=== PATIENT | female | born 1990 | race Caucasian/White ===

== ENCOUNTER 2020-05-27 06:00 | Inpatient (IN) | payer OTHER ==
[~2020-05-27] VITALS: Ht 162.6 cm; Wt 84.4 kg
--- OUTSIDE RECORDS SUMMARY | ~2020-05-27 | XMS | Encounter Summary ---
Demographics + + + | Address | [address] | | | [place] [address] | + + + | Home Phone | | + + + | Preferred Language | Unknown | + + + | Marital Status | Single | + + + | Congregational Affiliation | Unknown | + + + | Race | White | + + + | Ethnic Group | Not or | + + + Author + + + | Author | [facility] | | | and [place] | + + + | Organization | [facility] | | | and [place] | + + + | Address | Unknown | + + + | Phone | Unavailable | + + + Support + + + + + | Name | Relationship | Address | Phone | + + + + + | Tanner Suarez | ECON | [address] | | | | | [place], | | | | | [place] [address] | | + + + + + | Bernarda Cunningham | ECON | [address] | | | | | [place], [place] | | | | | [address] | | + + + + + Care Team Providers + +------+ + | Care Tool Crib Manager Name | Role | Phone | + +------+ + | Frnaklin Cleary | PCP | | | MD | | | + +------+ + Reason for Visit + + + | Reason | Comments | + + + | Latch Difficulties | | + + + | Consult | | + + + | Sore Nipples | | + + + Encounter Details +--------+ + + + + | Date | Type | Department | Care Team | Description | +--------+ + + + + | 01/28/ | Hospital | [facility] | Rupesh Baker | Other and | | 2013 | Encounter | MED CTR OB | DO [address] | unspecified disorder | | | | PROCEDURES [address] [place] | of breast | | | | [facility], | [place] [address] | associated with | | | | [place] [phone] | [phone] | childbirth, | | | | [phone] | | condition | | | | | | or complication | | | | | | (Primary Dx) | +--------+ + + + + Social History + +-------+ +--------+------+ | Tobacco Use | Types | Packs/Day | Years | Date | | | | | Used | | + +-------+ +--------+------+ | Never Assessed | | | | | + +-------+ +--------+------+ + + + | Sex Assigned at | Date Recorded | | | | + + + | Not on file | | + + + documented as of this encounter Discharge Instructions Patient Instructions Geraldine Thomson RN - 01/28/2014 7:56 PM PDTSee progress notesE lectronically signed by Geraldine Thomson RN at 01/28/2014 7:56 PM PDT documented in this encounter Medications at Time of Discharge + + + +---------+ + + | Medication | Sig | Dispensed | Refills | Start | End Date | | | | | | Date | | + + + +---------+ + + | docusate-senna | Take 1 tablet by | 30 | 1 | 01/25/20 | | | (SENOKOT-S) 50-8.6 | mouth 2 times daily. | tablet | | 14 | | | mg per tablet | | | | | | + + + +---------+ + + | ibuprofen | Take 1 tablet by | 30 | 1 | 01/25/20 | | | (ADVIL,MOTRIN) 800 | mouth every 8 hours | tablet | | 14 | 4 | | MG tablet | as needed for Pain | | | | | | | for up to 10 days. | | | | | + + + +---------+ + + | ranitidine | Take 150 mg by mouth | | 0 | | | | (ZANTAC) 150 mg | as needed. | | | | 6 | | tablet | | | | | | + + + +---------+ + + documented as of this encounter Progress Notes Geraldine Thomson, RAFIQ - 01/28/2014 2:30 PM PDTThe pt has inverted nipples, she is usin g shells between feedings and a nipple shield for feeding. 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
--- OUTSIDE RECORDS SUMMARY | ~2020-05-27 | XMS | Clinical Summary ---
Demographics + + + | Address | [address] | | | [place] [address] | + + + | Home Phone | | + + + | Preferred Language | Unknown | + + + | Marital Status | Single | + + + | Gnosticism Affiliation | Unknown | + + + | Race | Unknown | + + + | Ethnic Group | Other Race | + + + Author + + + | Author | [facility] | + + + | Organization | [facility] | + + + | Address | Unknown | + + + | Phone | Unavailable | + + + Care Team Providers + +------+ + | Care Immigration Law Specialist Name | Role | Phone | + +------+ + PCP | Unavailable | + +------+ + Source Comments CLARA is fully live on both [employer] Ambulatory and [employer] InPatient.[facility] Allergies Not on File Medications Not on file Active Problems Not on file Social History + +-------+ +--------+------+ | Tobacco [...] on file | | + + + + + + + | Job Start Date | Occupation | Industry | + + + + | Not on file | Not on file | Not on file | + + + + + + + + | Travel History | Travel Start | Travel End | + + + + + + | No recent travel history available. | + + Last Filed Vital Signs Not on file Plan of Treatment Not on file Results Not on filefrom Last 3 Months Insurance + +--------+ +--------+ + +------+ | Payer | Benefi | Subscriber | Effect | Phone | Address | Type | | | t Plan | ID | sonia | | | | | | / | | Dates | | | | | | Group | | | | | | + +--------+ +--------+ + +------+ | [employer] | PACIFI | xxxxxxxxxxx | 03/08/20 | [phone] | [address] | PPO | | | [facility] | | [address] | [phone] | | [address] | | sent | | [place] | | | | | | | | , [place] | | | | | | | | [address] | | + +--------+ +--------+ + +------+ + +--------+ +--------+ + + | Guarantor Name | Accoun | Relation to | Date | Phone | Billing Address | | | t Type | Patient | of | | | | | | | | | | + +--------+ +--------+ + + | Casey Alford | Person | Self | [birth year] | [address] | | | al/Kervin | | 1990 | [phone] | [place] [address] | | | er[place]on | | | [address] (Home) | | + +--------+ +--------+ + +"
--- OUTSIDE RECORDS SUMMARY | ~2020-05-27 | XMS | Encounter Summary ---
Demographics + + + | Address | [address] | | | [place] [address] | + + + | Home Phone | | + + + | Preferred Language | Unknown | + + + | Marital Status | Single | + + + | Mosque Affiliation | Unknown | + + + | Race | White | + + + | Ethnic Group | Not or | + + + Author + + + | Author | [facility] | | | and [place] | + + + | Organization | [facility] | | [...] [place], | | | | | [place] [address] | | + + + + + | Bernarda Cunningham | ECON | [address] | | | | | [place], [place] | | | | | [address] | | + + + + + Care Team Providers + +------+ + | Care Patient Scheduling Coordinator Name | Role | Phone | + +------+ + | Franklin Cleary | PCP | | | MD | | | + +------+ + Encounter Details +--------+ + + + + | Date | Type | Department | Care Team | Description | +--------+ + + + + | 02/10/ | Hospital | [facility] | Rupesh Baker | Normal in | | 2016 | Encounter | [address] | [address] | multigravida | | | | [place], [place] | [facility] | | | | | [address] | [place] [address] | | | | | [phone] | [phone] | | +--------+ + + + + Social [...] + + documented as of this encounter Medications at Time of Discharge [...] + + documented as of this encounter Plan of Treatment Not on filedocumented as of this encounter Procedures + +--------+ + + + | Procedure Name | Priori | Date/Time | Associated Diagnosis | Comments | | | ty | | | | + +--------+ + + + | US OB 14 + WEEKS | Routin | 02/11/2016 | Normal | Results for this | | SINGLE OR FIRST | e | 4:00 PM | in multigravida | procedure are in the | | GESTATION | | PDT | | results section. | + +--------+ + + + documented in this encounter Results US OB 14 + Week Singl or First Gestation (02/11/2016 4:00 PM PDT) + + | Specimen | + + | | + + + + --+ | Narrative | Performed At | + + --+ | COMPLETE | [facility] | | OBSTETRIC ULTRASOUND 02/11/2016 4:00 PM (PERFORMED AT [facility] | | | [facility]) CLINICAL HISTORY: Normal in multigravida, | | | approximately 19 weeks 3days based on LMP, evaluate | | | growth and anatomy COMPARISON: None available FINDINGS: A single | | | intrauterine fetus is present, and is in transverse lie, headtoward | | | the maternal right. The maternal cervix is closed and measures 3.9 | | | cm. The placenta is posterior and fundal, without evidence of placenta | | | previa orsubchorionic hemorrhage. Amniotic fluid volume is | | | subjectively within normallimits. biometric data:BPD of 4.6 | | | cm equals 19 weeks 6 days.Head circumference of 17.4 cm equals 19 | | | weeks 6 days.Abdominal circumference of 14.6 cm equals 20 weeks 0 | | | days.Femur length of 3.2 cm equals 19 weeks 6 days. Average | | | sonographic age is 19 weeks 6 days, which is 3 days greater than | | | thecalculated gestational age based on LMP. anatomic survey: | | | Contents of the posterior fossa and the lateralventricles are | | | unremarkable. A four-chamber heart is suggested, with aregular | | | rate of 150 BPM. The orientation of the cardiac | | | ventricularoutflow tracts is not well visualized. A fluid filled | | | stomach and bladder arepresent. The spine and renal region | | | are unremarkable. A three vesselumbilical cord is present, however | | | its insertion is not optimallyvisualized. Two upper and lower | | | extremities are visualized. IMPRESSION -1. SINGLE, LIVING | | | INTRAUTERINE FETUS IN TRANSVERSE LIE, WITH AVERAGESONOGRAPHIC AGE 19 | | | WEEKS 6 DAYS, WHICH IS 3 DAYS GREATER THAN THE CALCULATEDGESTATIONAL | | | AGE BASED ON LMP. 2. SUBOPTIMAL VISUALIZATION OF THE | | | UMBILICAL CORD INSERTION ANDORIENTATION OF THE CARDIAC VENTRICULAR | | | OUTFLOW TRACTS. CONSIDER INTERVALSONOGRAPHIC FOLLOW-UP . 3. | | | OTHERWISE NORMAL ANATOMIC SURVEY. Dictated and Signed by: Johnathan | | | MD Ben Electronically signed: 02/14/2016 6:07 PM | | | | | |IMPRESSION - | | |1. SINGLE, LIVING INTRAUTERINE FETUS IN TRANSVERSE LIE, WITH AVERAGE | | |SONOGRAPHIC AGE 19 WEEKS 6 DAYS, WHICH IS 3 DAYS GREATER THAN THE CALCULATED | | |GESTATIONAL AGE BASED ON LMP. | | | | | |2. SUBOPTIMAL VISUALIZATION OF THE UMBILICAL CORD INSERTION AND | | |ORIENTATION OF THE CARDIAC VENTRICULAR OUTFLOW TRACTS. CONSIDER INTERVAL | | |SONOGRAPHIC FOLLOW-UP . | | | | | |3. OTHERWISE NORMAL ANATOMIC SURVEY. | | | | | |Dictated and Signed by: Johnathan Contreras MD | | | Electronically signed: 02/14/2016 6:07 PM | | | | | + + --+ + + | Procedure Note | + + | Clayton, Rad Results In - 02/14/2016 6:10 PM PDT COMPLETE OBSTETRIC ULTRASOUND 02/11/2016 | | 4:00 PM (PERFORMED AT [facility])CLINICAL HISTORY: Normal in | | multigravida, approximately 19 weeks 3days based on LMP, evaluate growth | | and anatomyCOMPARISON: None availableFINDINGS: A single intrauterine fetus is present, | | and is in transverse lie, headtoward the maternal right. The maternal cervix is closed | | and measures 3.9 cm. The placenta is posterior and fundal, without evidence of placenta | | previa orsubchorionic hemorrhage. Amniotic fluid volume is subjectively within | | normallimits. biometric data:BPD of 4.6 cm equals 19 weeks 6 days.Head | | circumference of 17.4 cm equals 19 weeks 6 days.Abdominal circumference of 14.6 cm | | equals 20 weeks 0 days.Femur length of 3.2 cm equals 19 weeks 6 days.Average sonographic | | age is 19 weeks 6 days, which is 3 days greater than thecalculated gestational age | | based on LMP. anatomic survey: Contents of the posterior fossa and the | | lateralventricles are unremarkable. A four-chamber heart is suggested, with aregular | | rate of 150 BPM. The orientation of the cardiac ventricularoutflow tracts is not | | well visualized. A fluid filled stomach and bladder arepresent. The spine and | | renal region are unremarkable. A three vesselumbilical cord is present, however its | | insertion is not optimallyvisualized. Two upper and lower extremities are | | visualized. IMPRESSION -1. SINGLE, LIVING INTRAUTERINE FETUS IN TRANSVERSE LIE, | | WITH AVERAGESONOGRAPHIC AGE 19 WEEKS 6 DAYS, WHICH IS 3 DAYS GREATER THAN THE | | CALCULATEDGESTATIONAL AGE BASED ON LMP. 2. SUBOPTIMAL VISUALIZATION OF THE | | UMBILICAL CORD INSERTION ANDORIENTATION OF THE CARDIAC VENTRICULAR OUTFLOW TRACTS. | | CONSIDER INTERVALSONOGRAPHIC FOLLOW-UP .3. OTHERWISE NORMAL ANATOMIC | | SURVEY.Dictated and Signed by: Johnathan Contreras MD Electronically signed: 02/14/2016 6:07 PM | | anatomic survey: Contents of the posterior fossa and the lateral | |ventricles are unremarkable. A four-chamber heart is suggested, with a | |regular rate of 150 BPM. The orientation of the cardiac ventricular | |outflow tracts is not well visualized. A fluid filled stomach and bladder are | |present. The spine and renal region are unremarkable. A three vessel | |umbilical cord is present, however its insertion is not optimally | |visualized. Two upper and lower extremities are visualized. | | | |IMPRESSION - | |1. SINGLE, LIVING INTRAUTERINE FETUS IN TRANSVERSE LIE, WITH AVERAGE | |SONOGRAPHIC AGE 19 WEEKS 6 DAYS, WHICH IS 3 DAYS GREATER THAN THE CALCULATED | |GESTATIONAL AGE BASED ON LMP. | | | |2. SUBOPTIMAL VISUALIZATION OF THE UMBILICAL CORD INSERTION AND | |ORIENTATION OF THE CARDIAC VENTRICULAR OUTFLOW TRACTS. CONSIDER INTERVAL | |SONOGRAPHIC FOLLOW-UP . | | | |3. OTHERWISE NORMAL ANATOMIC SURVEY. | | | |Dictated and Signed by: Johnathan Contreras MD | | Electronically signed: 02/14/2016 6:07 PM | + + + +---------+ + + | Performing | Address | City/State/Zipcode | Phone Number | | Organization | | | | + +---------+ + + | [facility] | | | | + +---------+ + + documented in this encounter Visit Diagnoses + + | Diagnosis | + + | Normal in multigravida | + + documented in this encounter"
--- OUTSIDE RECORDS SUMMARY | ~2020-05-27 | XMS | Encounter Summary ---
Demographics + + + | Address | [address] | | | [place] [address] | + + + | Home Phone | | + + + | Preferred Language | Unknown | + + + | Marital Status | Single | + + + | Advent Affiliation | Unknown | + + + | Race | White | + + + | Ethnic Group | Not or | + + + Author + + + | Author | [facility] | | | and [place] | + + + | Organization | [facility] | | | and [...] [place], | | | | | [place] [address] | | + + + + + | Bernarda Cunningham | ECON | [address] | | | | | [place], [place] | | | | | [address] | | + + + + + Care Team Providers + +------+ + | Care Analytics Architect Name | Role | Phone | + +------+ + | Franklin Cleary | PCP | | | MD | | | + +------+ + Reason for Visit + + + | Reason | Comments | + + + | Consult | | + + + Encounter Details +--------+ + + + + | Date | Type | Department | Care Team | Description | +--------+ + + + + | 06/27/ | Hospital | [facility] | Rupesh Baker | care and | | 2016 | Encounter | MED CTR OB | DO [address] | examination of | | | | PROCEDURES [address] [place] | lactating mother | | | | [place], | [place] [address] | (Primary Dx) | | | | [place] [id number] | [phone] | | | | | [phone] | | | +--------+ + + + + [...] Instructions Patient Instructions Geraldine Thomson RN - 06/27/2016 4:43 PM PDTSee progress notesE lectronically signed by Geraldine Thomson RN at 06/27/2016 4:43 PM PDT documented in this encounter Medications at Time of Discharge + + + +---------+ + + | Medication | Sig | Dispensed | Refills | Start | End Date | | | | | | Date | | + + + +---------+ + + | docusate-senna | Take 1 tablet by | 30 | 1 | 06/23/20 | | | (SENOKOT-S) 50-8.6 | mouth 2 times daily. | tablet | | 16 | | | mg per tablet | [...] + + + +---------+ + + | | Take 1-2 tablets by | 30 | 0 | 06/23/20 | | | HYDROcodone-acetamin | mouth every 6 hours | tablet | | 16 | | | ophen (NORCO) 5-325 | as needed for Pain | | | | | | mg per tablet | for up to 30 doses. | | | | | + + + +---------+ + + | ibuprofen | Take 1 tablet by | 30 | 1 | 06/23/20 | | | (ADVIL,MOTRIN) 800 | mouth every 8 hours | tablet | | 16 | 6 | | MG tablet | as needed for Pain | | | | | | | for up to 10 days. | | | | | + + + +---------+ + + documented as of this encounter Progress Notes Geraldine Thomson RN - 06/27/2016 4:39 PM PDT Ac/pc weight 66cc. The infants latc h has improved. The mother's nipples are healing and Her milk is in. The infants lingual frenotomy site is healing, No redness or swelling. The infant has frequent yellow seedy looking stool and pale yellow urine. The mother instructed to continue to feed the per demand. The baby will be seen by Dr Pedro in [facility] in one week. The pt reports feeling better and reports ,"the baby nurses so well, it's what I had hoped". Nipple care r ashwin, Hand expressing fresh breast milk onto her nipples following breast feeding and al lowing this to air dry to promote healing and reduce nipple tenderness. documented in this encounter Plan of Treatment Not on filedocumented as of this encounter Visit Diagnoses + + | Diagnosis | + + | care and examination of lactating mother - Primary | + + documented in this encounter
--- OUTSIDE RECORDS SUMMARY | ~2020-05-27 | XMS | Encounter Summary ---
Demographics + + + | Address | [address] | | | [place] [address] | + + + | Home Phone | | + + + | Preferred Language | Unknown | + + + | Marital Status | Single | + + + | Yazidism Affiliation | Unknown | + + + | Race | White | + + + | Ethnic Group | Not or | + + + Author + + + | Author | [facility] | | | and [place] | + + + | Organization | [facility] | | | [...] [place], | | | | | [place] [address] | | + + + + + | Bernarda Cunningham | ECON | [address] | | | | | [place], [place] | | | | | [address] | | + + + + + Care Team Providers + +------+ + | Care Stamp Clerk Name | Role | Phone | + +------+ + | Franklin Cleary | PCP | | | MD | | | + +------+ + Encounter Details +--------+ + + + + | Date | Type | Department | Care Team | Description | +--------+ + + + + | 03/31/ | Hospital | [facility] | Rupesh Baker | Normal in | | 2016 | Encounter | [address] | DO [address] | multigravida | | | | [place], [place] | [facility] | | | | | [address] | [place] [address] | | | | | [phone] | [phone] | | +--------+ + + + + [...] +--------+ + + + | US OB FOLLOW UP | Routin | 03/31/2016 | Normal | Results for this | | TRANSABDOMINAL | e | 3:00 PM | in multigravida | procedure are in the | | | | PDT | | results section. | + +--------+ + + + documented in this encounter Results US OB Follow Up Transabdominal (03/31/2016 3:00 PM PDT) + + | Specimen | + + | | + + + + + | Narrative | Performed At | + + + | EXAM: US OB FOLLOW UP TRANSABDOMINAL and 03/31/2016 3:00 PM | [facility] | | HISTORY: Normal in multigravida. COMPARISON: February | | | 2015 FINDINGS: BPD: 68.9 mm: 27 weeks 5 days HC: 260.8 mm: | | | 28 weeks 2 days AC: 226.5 mm: 27 weeks 0 days FL: 49.8 mm: 26 weeks | | | 6 days EFW: 1031 g, corresponding to 69 percentile by LMP and 26 | | | percentile by ultrasound. Cephalic index: 75.9(normal range | | | 70.0-86.0) HC/AC ratio: 1.15 (1.04-1.22) Composite estimated | | | gestational age by U/S: 27 weeks 3 days correlating adequately with | | | LMP dating of 26 weeks 3 days heart rate: 153 bpm, with a | | | normal cardiac rhythm. The cervix is long and closed, measuring 3 | | | cm in length. The placenta is posterior, without evidence of placenta | | | previa. The fetus is in breech presentation. Amniotic fluid | | | is subjectively normal. Active motion is seen. Ventricular | | | outflow tracts are acceptable. cord insertion is acceptable. | | | IMPRESSION - Single live intrauterine gestation. Good | | | correlation between clinical and sonographic dating. Dictated and | | | Signed by: Rupesh Cee MD Electronically signed: 03/31/2016 | | | 5:28 PM | | + + + + + | Procedure Note | + + | Clayton, Rad Results In - 03/31/2016 5:31 PM PDT EXAM: US OB FOLLOW UP TRANSABDOMINAL | | and 03/31/2016 3:00 PMHISTORY: Normal in multigravida. COMPARISON: February 10 | | 2015FINDINGS:BPD: 68.9 mm: 27 weeks 5 daysHC: 260.8 mm: 28 weeks 2 daysAC: 226.5 mm: 27 | | weeks 0 daysFL: 49.8 mm: 26 weeks 6 daysEFW: 1031 g, corresponding to 69 percentile by | | LMP and 26 percentile byultrasound.Cephalic index: 75.9(normal range 70.0-86.0)HC/AC | | ratio: 1.15 (1.04-1.22)Composite estimated gestational age by U/S: 27 weeks 3 days | | correlatingadequately with LMP dating of 26 weeks 3 daysFetal heart rate: 153 bpm, with | | a normal cardiac rhythm.The cervix is long and closed, measuring 3 cm in length.The | | placenta is posterior, without evidence of placenta previa. The fetus is in breech | | presentation.Amniotic fluid is subjectively normal.Active motion is seen. | | Ventricular outflow tracts are acceptable. Fetalcord insertion is acceptable. | | IMPRESSION -Single live intrauterine gestation. Good correlation between clinical | | andsonographic dating.Dictated and Signed by: Rupesh Cee MD Electronically | | signed: 03/31/2016 5:28 PM | | | |Cephalic index: 75.9(normal range 70.0-86.0) | |HC/AC ratio: 1.15 (1.04-1.22) | | | |Composite estimated gestational age by U/S: 27 weeks 3 days correlating | |adequately with LMP dating of 26 weeks 3 days | | heart rate: 153 bpm, with a normal cardiac rhythm. | | | |The cervix is long and closed, measuring 3 cm in length. | |The placenta is posterior, without evidence of placenta previa. | | | |The fetus is in breech presentation. | | | |Amniotic fluid is subjectively normal. | | | |Active motion is seen. Ventricular outflow tracts are acceptable. | |cord insertion is acceptable. | | | |IMPRESSION - | | | |Single live intrauterine gestation. Good correlation between clinical and | |sonographic dating. | | | |Dictated and Signed by: Rupesh Cee MD | | Electronically signed: 03/31/2016 5:28 PM | + + + +---------+ + [...]
--- OUTSIDE RECORDS SUMMARY | ~2020-05-27 | XMS | Clinical Summary ---
Demographics + + + | Address | [address] | | | [place] [address] | + + + | Home Phone | | + + + | Preferred Language | Unknown | + + + | Marital Status | Single | + + + | Taoist Affiliation | Unknown | + + + | Race | White | + + + | Ethnic Group | Not or | + + + Author + + + | Author | [facility] | | | and [place] [...] [place], | | | | | [place] [address] | | + + + + + | Bernarda Cunningham | ECON | [address] | | | | | [place], [place] | | | | | [address] | | + + + + + Care Team Providers + +------+ + | Care Field Nurse Case Manager Name | Role | Phone | + +------+ + | Franklin Cleary | PCP | | | MD | | | + +------+ + Allergies No Known Allergies Medications + + + +---------+------+------+-------+ | Medication | Sig | Dispensed | Refills | Star | End | Statu | | | | | | t | Date | s | | | | | | Date | | | + + + +---------+------+------+-------+ | docusate-senna | Take 1 tablet by | 30 | 1 | 04/1 | | Activ | | (SENOKOT-S) 50-8.6 | mouth 2 times daily. | tablet | | 9/20 | | e | | mg per tablet | | | | 14 | | | + + + +---------+------+------+-------+ | docusate-senna | Take 1 tablet by | 30 | 1 | 09/1 | | Activ | | (SENOKOT-S) 50-8.6 | mouth 2 times daily. | tablet | | 6/20 | | e | | mg per tablet | | | | 16 | | | + + + +---------+------+------+-------+ | | Take 1-2 tablets by | 30 | 0 | 09/1 | | Activ | | HYDROcodone-acetamin | mouth every 6 hours | tablet | | 6/20 | | e | | ophen (NORCO) 5-325 | as needed for Pain | | | 16 | | | | mg per tablet | for up to 30 doses. | | | | | | + + + +---------+------+------+-------+ Active Problems Not on file Social History [...] on file | | + + + Last Filed Vital Signs + + + + + | Vital Sign | Reading | Time Taken | Comments | + + + + + | Blood Pressure | 121/83 | 06/23/2016 4:00 PM | | | | | PDT | | + + + + + | Pulse | 92 | 06/23/2016 4:00 PM | | | | | PDT | | + + + + + | Temperature | 37.2 C (99 F) | 06/23/2016 4:00 PM | | | | | PDT | | + + + + + | Respiratory Rate | 18 | 06/23/2016 4:00 PM | | | | | PDT | | + + + + + | Oxygen Saturation | 97% | 06/23/2016 4:00 PM | | | | | PDT | | + + + + + | Inhaled Oxygen | - | - | | | Concentration | | | | + + + + + | Weight | 97.1 kg (214 lb) | 01/22/2014 12:43 AM | | | | | PDT | | + + + + + | Height | 162.6 cm (5' 4") | 01/22/2014 12:43 AM | | | | | PDT | | + + + + + | Body Mass Index | 36.73 | 01/22/2014 12:43 AM | | | | | PDT | | + + + + + Plan of Treatment + + +-------+ + | Health Maintenance | Due Date | Last | Comments | | | | Done | | + + +-------+ + | Vaccine: | | | | | Dtap/Tdap/Td (1 - | 8 | | | | Tdap) | | | | + + +-------+ + | Cervical Cancer | | | | | Screening (Pap) | 9 | | | + + +-------+ + | Vaccine: Influenza | | | | | (#1) | 0 | | | + + +-------+ + Results Not on filefrom Last 3 Months Insurance +-------+--------+ +--------+ + +------+ | Payer | Benefi | Subscriber | Effect | Phone | Address | Type | | | t Plan | ID | sonia | | | | | | / | | Dates | | | | | | Group | | | | | | +-------+--------+ +--------+ + +------+ | MOD[employer] | [employer] | [id number] | 10/08/19 | [phone] | [address] | PPO | | | [place] | | 16-Pre | 9 | [id number] | | | | EPO | | sent | | [facility] [place], | | | | | | | | [place] [address] | | +-------+--------+ +--------+ + +------+ + +--------+ +--------+ + + | Guarantor Name | Accoun | Relation to | Date | Phone | Billing Address | | | t Type | Patient | of | | | | | | | | | | + +--------+ +--------+ + + | Casey Alford | Person | Self | [birth year] | [address] | | [place] | al/Fam | | 1990 | [phone] | [place] | | | [place] | | | [address] ([place]) | [address] | + +--------+ +--------+ + + Advance Directives + + + + + | Type | Date Recorded | Patient | Explanation | | | | 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
--- OUTSIDE RECORDS SUMMARY | ~2020-05-27 | XMS | Encounter Summary ---
Demographics + + + | Address | [address] [facility] | | | [place] [address] | + + + | Home Phone | | + + + | Preferred Language | Unknown | + + + | Marital Status | Single | + + + | Rastafari Affiliation | Unknown | + + + | Race | White | + + + | Ethnic Group | Not or | + + + Author + + + | Author | [facility] | | | and [place] | + + + | Organization | [facility] | | | [...] [place], | | | | | [place] [address] | | + + + + + | Bernarda Cunningham | ECON | [address] | | | | | [place], [place] | | | | | [address] | | + + + + + Care Team Providers + +------+ + | Care Hoe Runner Name | Role | Phone | + +------+ + | Franklin Cleary | PCP | | | MD | | | + +------+ + Reason for Referral Evaluate & Treat (Routine) +--------+ + + + + + | Status | Reason | Specialty | Diagnoses / | Referred By | Referred To | | | | | Procedures | Contact | Contact | +--------+ + + + + + | Closed | Specialty | | Diagnoses | | | | | Services | Services / | | Samuel, | | | | Required | | care and | Rupesh Bai, | | | | | and | examination | DO [address] | | | | | | [address] | | | | | | | [place], | | | | | | | [place] | | | | | | | [address] | | | | | | | Phone: | | | | | | | [phone] | | +--------+ + + + + + (Routine) +--------+ + + + + + | Status | Reason | Specialty | Diagnoses / | Referred By | Referred To | | | | | Procedures | Contact | Contact | +--------+ + + + + + | Closed | Specialty | | Diagnoses | | | | | Services | and | | Montagnino, | | | | Required | | care and | Nicki | | | | | | examination | Christina | | | | | | | Franklin, DO | | | | | | | [address] | | | | | | | [address] [place] | | | | | | | [place], [place] | | | | | | | [address] | | | | | | | Phone: | | | | | | | [phone] | | | | | | | Fax: | | | | | | | [phone] | | +--------+ + + + + + Reason for Visit Auth/Cert +--------+--------+ + + + + | Status | Reason | Specialty | Diagnoses / | Referred By | Referred To | | | | | Procedures | Contact | Contact | +--------+--------+ + + + + | | | | | | | +--------+--------+ + + + + Encounter Details +--------+ + + + + | Date | Type | Department | Care Team | Description | +--------+ + + + + | 06/22/ | Hospital | [facility] | Nicki Baxter | care and | | 2016 - | Encounter | [facility] | Christina Reid DO | examination (Primary | | | | [address] | [address] | Dx) | | 06/23/ | | [place] | [place] | | | 2015 | | [id number] | [address] | | | | | [phone] | | | | | | | Rupesh Baker | | | | | | DO Richardson [address] | | | | | | [address] [place] | | | | | | [place] [address] | | | | | | [phone] | | +--------+ + + + + [...] + + documented as of this encounter Last Filed Vital Signs + + + [...] + + + + | Weight | - | - | | + + + + + | Height | - | - | | + + + + + | Body Mass Index | - | - | | + + + + + documented in this encounter Discharge Instructions Instructions Josee Ngo RN - 06/23/2016POSTPARTUM DISCHARGE INSTRUCTIONS Warning Signs Check List Notify your clinician immediately if you are experiencing any of the following: Heavy bleeding from the vagina (blood is bright-red and soaks a pad in an hour or less) Normal bleeding decreases in amount over time and is: Bright-red (lasts two to three days). Pinkish or brown (lasts from about the third day to the tenth day). Creamy or yellow (usually lasts one to two weeks). Discharge from the vagina that has a bad odor. Temperature over 100.4 (38 C) or you feel cold and have the chills (you are shiv ering). Urination that is painful, difficult, or too frequent. Difficulty having a bowel movement. Painful, very red, and swollen incision or leaking of any fluids. Breasts that are full and or/painful (swollen, hot, tight, itchy, lumpy, shiny, flat nip ples, or sore spots with flu-like symptoms). Pain that becomes worse and unrelieved by medication. Trouble breathing, dizziness, or faintness. Crying spells or mood swings that feel out of control. Pain, redness, warmth or firmness in the lower calf. Unusual or excessive swelling in your face or hands. Severe or constant headaches. Blurred vision or spots in front of your eyes. Sudden weight gain of more than one pound a day for several days. Persistent pain in the upper right part of your abdomen. Activity/Exercise Do not drive while you are taking narcotics. If you had a section, try driving maneuvers while parked to ensure no increase in incisional pain. Gradually increase your daily activities until you are back to your normal routine. Rest frequently. Remember to continue to drink plenty of fluids and eat frequently if yo u are . Heavy lifting or other strenuous exertion is unlikely to disrupt your incision or lacera tion but it may cause an increase in pain. Your provider will tell you if additional restric tions apply to you. Bowels and Regularity constipation is common; you make take Docusate sodium or Milk of Magnesia to alleviate discomfort Painful bowel movements or rectal pain may result from hemorrhoids; use Tucks and/or top ical treatment like Anusol-HC. Sitz baths can also help. Normal Bleeding Vaginal spotting may last up to six weeks. It is important that you change your pad on a regular basis. Your menstrual period may occur as early as six weeks to two months after your delivery. Care of Stitches You should feel less discomfort every day from your stitches. Perineal stitches will dissolve within 2-4 weeks. You may shower or bathe with stitches; drip plain or soapy water over the incision and d ry gently with a clean towel. If you have luci you may shower (no tub bathing), and dry g ently with a clean towel. If you had any luci that were not removed during your hospitalization they will need to be removed in your provider's office. Steri-strips may fall off on their own or can be removed at post-op visit. Sex/Douching/Tampons Do not place anything in the vagina for the first six weeks after delivery. Your healthcare provider may advise you to wait up to six weeks for intercourse. Once th e bleeding has stopped, it is alright to have intercourse if you feel ready. Keep in mind yo u are at risk of getting . You may find your vagina feels dry, making sex uncomfortable. This can last several gautam hs due to changing hormone levels. To help lubricate your vagina, you may purchase a waterso luble lubricant (e.g., Astroglide) from your local drug store. This will help make intercour se more comfortable. documented in this encounter Medications at Time [...] documented as of this encounter Progress Notes Josee Ngo RN - 06/23/2016 6:15 PM PDTDischarged to home with baby and spouse. Derek valencia will schedule a [address] up [address] Baker. osee Ngo RN - 06/23/2016 4:30 PM PDT Discharge teaching gone over with patient, verbalizes understanding. Josee Vega RN - 06/23/2016 7:4 5 AM PDTAssessment completed, denies complaints at this time. Rupesh Renteria DO - 06/23/2016 7:00 A M PDT OBSTETRICAL PROGRESS NOTE Casey Alford : 1990 Hospital Day: 2 1 day post vaginal delivery Subjective The patient feels well and voices no concerns. Her pain is well controlled with current me dications. Urinary output is adequate. The patient is ambulating well. She is tolerating a r egular diet well. Objective Vitals Current Average / Min / Max Temp 36.5 C (97.7 F) Temp Min: 36.5 C (97.7 F) Max: 36.8 C (98.2 F) BP 113/55 mmHg BP Min: 106/61 Max: 116/73 HR 82 Pulse Av.7 Min: 79 Max: 93 RR 18 Resp Av Min: 18 Max: 18 Sats 99 % SpO2 Min: 97 % Max: 99 % Weight Admit: BMI There is no weight on file to calculate BMI. No intake or output data in the 24 hours ending 06/23/16 0700 General: alert and appropriate in NAD Respiratory: clear to auscultation bilaterally Cardiovascular: regular rate and rhythm Lochia: moderate lochia UterineFundus: firm and nontender DVT Evaluation: No evidence of DVT seen on physical exam. Labs: No results found for this or any previous visit (from the past 12 hour(s)). Assessment & Plan Active Problems: * No active hospital problems. * Status post vaginal delivery. Doing well . Discharge home with standard precautions and return to clinic in 6 weeks. Patient will be discharged on ibuprofen 800 mg, hydrocodone 5 mg, senna S as needed. Patient will return in 6 weeks. Precautions were given for early return. Electronically signed: Rupesh Baker DO 06/23/2016 7:00 Patience Wolf RN - 06/22/2016 9:56 PM PDTSleeping/Electronically signed by RAFIQ Fisher t 06/22/2016 9:56 PM Vinay Wolf RN - 06/22/2016 9:31 PM [id number]) saline lock r emoved, assessment done. WNL. Josee Vega RN - 06/22/2016 9:00 AM PDTUp to bathroom, voided without d ifficulty. Up to shower, tolerated well.Electronically signed by Josee Ngo RN at 0 06/22/2016 10:48 AM Josee Vega RN - 06/22/2016 8:00 AM PDTAssessment completed, denies complaints at this time. 16 10:22 AM Dianne Hogan RN - 06/22/2016 4:43 AM PDTViable BB del Vag to mom's ab domen, skin to skin initiated. apgars 8/8 Dianne Hogan RN - 06/22/2016 2:39 AM PDTPt presents to unit c /o contractions since midnight every 2 min. Reports pressure, crying. 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 She reports good movements and denies loss of fluid or vaginal bleeding. course: Uncomplicated Elevated DMS, 3hr GTT normal GBS negative Review of Systems: Obstetrical: Patient denies headaches, visual changes, or epigastric pain Constitutional: Negative for fever, chills and activity change. Head/Ears: Negative for dizziness, lightheadedness. Respiratory: Negative for chest tightness and shortness of breath. Cardiovascular: Negative for chest pain and leg swelling. Gastrointestinal: Negative for diarrhea, constipation and abdominal distention. Genitourinary: Negative for dysuria and frequency. Musculoskeletal: Negative for back pain and joint swelling. Neurological: Negative for tremors and weakness. Hematological: Does not bruise/bleed easily. Psychiatric/Behavioral: Negative for sleep disturbance and dysphoric mood. Past Medical History: No past medical history on file. Surgical History: No past surgical history on file. Family History: No family history on file. Prior To Admission Medications: Prescriptions prior to admission Medication Sig Dispense Refill docusate-senna (SENOKOT-S) 50-8.6 mg per tablet Take 1 tablet by mouth 2 times daily. 3 0 tablet 1 ranitidine (ZANTAC) 150 mg tablet Take 150 mg by mouth as needed. Allergies: No Known Allergies LABS: PHYSICAL EXAM: Vital Signs on Arrival: Pulse: 74 Resp: 22 BP: 112/82 mmHg Vitals Signs (most recent): Pulse: 74 Resp: 22 BP: 112/82 mmHg Admission Weight: General: Alert and oriented HEENT: No abnormality noted Lungs: Clear, no respiratory distress Heart: Regular rate and rhythm, Abdomen: Gravid, nontender, heart tones obtained Extremities: Trace edema, normal pulses Estimated Weight: 9lbs Monitorin, moderate variability, no decelerations, Category 1 Tre[place]: uterine contractions every 2-3 mins Vaginal Exam (Last assessment) /BB AROM performed with return of clear fluid. IMPRESSION: 26 y.o. 38w2d presents in active labor. AROM performed. PLAN: -Expectant management -history of 9lb+ without epidural -Plan for vaginal delivery Electronically Signed by: Nicki Baxter DO 06/22/2016 4:01 docu mented in this encounter Consult Notes Geraldine Thomson RN - 06/22/2016 12:55 PM PDTThe infant has not been able to maintain his latch when breast feeding. The mother assisted with supporting the infant during the fe eding. The baby was able to obtain a latch with the nipple shield. The baby has been given infant formula by SNS to increase his blood sugar levels. The mother is able to express co lostrum easily. The baby does not suckle effectively to remove colostrum from the breast. Therefor the mother has been shown how to use the electric breast pump to provide the baby w ith supplemental expressed breast milk and to stimulate the mother's milk supply. The baby' s difficulty latching may be caused by ankyloglossia. Possible treatment for ankyloglossia discussed with the mother and father.Electronically signed by Geraldine Thomson RN at 12:55 PM PDTdocumented in this encounter Miscellaneous Notes Plan of Care - Josee Ngo RN - 06/23/2016 7:01 PM PDTProblem: Patient Care Overv iew (Infant) Goal: Care Team Goals & Evaluation PROBLEM-RELATED GOALS: Casey will maintain pain at 4/10 or less 06/22/16 Will have have light to mod vag bleeding 06/22/16 Will remain fee for infection 06/22/16 STRATEGY TO ACHIEVE GOALS: Encourage early Watch for changes in blood pressure, heart rate and urine output Continue uterine fundal massage, if fundus remains boggy Anticipate administration of uterotonic medications Accurately assess amount of blood loss (e.g., weigh perineal pads) Check for pooling on underpad Observe feedings twice daily, assessing s ability to latch and suck/swallow, moth er- positioning and presence of milk transfer Promote effective latch Advocate for patience/persistence to promote infant success Evaluate for signs of adequate intake Advocate for the use of appropriate alternative devices (e.g., cup as first choice, finger, syringe, dropper) when indicated Outcome: Adequate for Discharge Date Met: 06/23/16 Goal Evaluation: Pain has been well controlled with ibuprofen and hydrocodone. Bleeding has been minimal ov er the last 24 hours. Has no s/s of infection. lan of Care - Dianne Noonan RN - 06/22/2016 6:46 AM PDTProblem: Patient Care Overview (Infant) Goal: Care Team Goals & Evaluation PROBLEM-RELATED GOALS: Casey will maintain pain at 4/10 or less 06/22/16 Will have have light to mod vag bleeding 06/22/16 Will remain fee for infection 06/22/16 STRATEGY TO ACHIEVE GOALS: Encourage early Watch for changes in blood pressure, heart rate and urine output Continue uterine fundal massage, if fundus remains boggy Anticipate administration of uterotonic medications Accurately assess amount of blood loss (e.g., weigh perineal pads) Check for pooling on underpad Observe feedings twice daily, assessing s ability to latch and suck/swallow, moth er- positioning and presence of milk transfer Promote effective latch Advocate for patience/persistence to promote success Evaluate for signs of adequate intake Advocate for the use of appropriate alternative devices (e.g., cup as first choice, finger, syringe, dropper) when indicated Outcome: Unchanged Goal Evaluation: pt c/o of abdomen cramping after delivery motrin initally and [place] given after pt report s no change. Vag bleeding mod with no noted clots, continue to monitor closely. &D Delivery Nicki Bowers DO - 06/22/2016 4:05 AM PDTFormatting of this note mi ght be different from the original. OBSTETRICAL VAGINAL DELIVERY NOTE Pre-op Diagnosis: 1. Intrauterine at 38w2d 2. Active labor Post-op Diagnosis: same including 3. Delivered Procedure: Normal Spontaneous Vaginal Delivery Delivering Physician: Nicki Baxter DO Findings: Information for the patient's : Ralph Alford [[id number]] Delivery Date: 06/22/2016 Delivery Time: 0344 Baby: Pending Prashanth Sex: unspecified sex Weight: Height: Head circumference: APGARS One minute Five minutes Ten minutes Totals: 8 8 , weight pending with APGARs at one minute and at five minutes. Placenta delivered spontaneously intact with 3 vessel cord with uterine massage. Lacerations: EBL: 200ml Anesthesia:none Pre-delivery course: Casey Alford is a 26 y.o., who presented at 38w2d with labor. Her labor course was uneventful. Description of delivery: I performed AROM. Shortly after ROM, began pushing. She pushed for less than 10 minutes. Sh e delivered a viable in cephalic presentation. The head delivered in a right occipu t anterior presentation and the left shoulder was the anterior shoulder which delivered spon taneously without any difficulty. The remainder of the delivery was uncomplicated and atrau matic. The baby was placed directly on the mother's abdomen and the cord was clamped times two and subsequently cut by the baby's grandmother. Cord blood was obtained. An oxytocin infusion was then started and the placenta was removed spontaneously and found to be intact with a three vessel cord. Massage of the uterine fundus noted good tone. Insp ections for lacerations noted 1st degree laceration that did not require repair. Hemostatic. The patient tolerated the delivery well without any complications. Sponge, instrument, and needle counts were correct times two. The mother and baby were recovering together in the delivery room. Electronically Signed by: Nicki Baxter DO 06/22/2016 4:06 documented in this encounter Plan of Treatment + + +--------+ + + | Name | Type | Priori | Associated Diagnoses | Order Schedule | | | | ty | | | + + +--------+ + + | Amb referral to | Outpatient | Routin | care | 1 Occurrences | | | Referral | e | and examination | starting 06/23/2016 | | | | | | until 06/22/2017 | + + +--------+ + + | Ambulatory referral | Outpatient | Routin | care | 1 Occurrences | | to | Referral | e | and examination | starting 06/23/2016 | | | | | | until 06/22/2017 | + + +--------+ + + documented as of this encounter Procedures + +--------+ + + + | Procedure Name | Priori | Date/Time | Associated Diagnosis | Comments | | | ty | | | | + +--------+ + + + | CBC NO DIFFERENTIAL | Routin | 06/23/2016 | | Results for this | | | e | 6:06 AM | | procedure are in the | | | | PDT | | results section. | + +--------+ + + + | TYPE AND SCREEN | Routin | 06/22/2016 | | Results for this | | | e | 2:23 AM | | procedure are in the | | | | PDT | | results section. | + +--------+ + + + | CBC NO DIFFERENTIAL | STAT | 06/22/2016 | | Results for this | | | | 2:22 AM | | procedure are in the | | | | PDT | | results section. | + +--------+ + + + documented in this encounter Results CBC no Differential (06/23/2016 6:06 AM PDT) + + + + + + | Component | Value | Ref Range | Performed | Pathologist | | | | | At | Signature | + + + + + + | White Blood | 11.0 | 4.0 - 11.0 K/uL | [facility] | | | Cells | | [facility] | | [facility] | | | | | [facility] - | | | | | | LAB[facility]AT[facility] | | + + + + + + | Red Blood | 4.11 | 3.70 - 5.20 | [facility] | | | Cells | | M/uL | [facility] | | | | | [facility] | | | | | | [facility] - | | | | | | LABORATORY | | + + + + + + | Hemoglobin | 13.5 | 11.5 - 16.0 | [facility] | | | | | g/dL | [facility] | | | | | | [facility] | | | | | | [facility] - | | | | | | LABORATORY | | + + + + + + | Hematocrit | 37.3 | 34.0 - 47.0 % | [facility] | | | | | | [facility] | | | | | | [facility] | | | | | | [facility] - | | | | | | LABORATORY | | + + + + + + | MCV | 90.7 | 83.0 - 101.0 fL | [facility] | | | | | | [facility] | | | | | | [facility] | | | | | | [facility] - | | | | | | LABORATORY | | + + + + + + | MCH | 32.8 | 28.0 - 35.0 pg | [facility] | | | | | | [facility] | | | | | | [facility] | | | | | | [facility] - | | | | | | LABORATORY | | + + + + + + | MCHC | 36.1 (H) | 32.0 - 36.0 | [facility] | | | | | g/dL | [facility] | | | | | | [facility] | | | | | | [facility] - | | | | | | LABORATORY | | + + + + + + | RDW-CV | 13.9 | <15.0 % | [facility] | | | | | | [facility] | | | | | | [facility] | | | | | | [facility] - | | | | | | LABORATORY | | + + + + + + | Platelet | 193 | 140 - 440 K/uL | [facility] | | | Count | | | [facility] | | | | | | [facility] | | | | | | [facility] - | | | | | | LABORATORY | | + + + + + + | MPV | 8.3 | fL | [facility] | | | | | | [facility] | | | | | | [facility] | | | | | | [facility] - | | | | | | LAB[facility]ATORY | | + + + + + + + + | Specimen | + + | Blood | + + + + + + + | Performing | Address | City/State/Zipcode | Phone Number | | Organization | | | | + + + + + | [facility] | [address] | [place] | [phone] | | [facility] | | [address] | | | - LABORATORY | | | | + + + + + Type and Screen (06/22/2016 2:23 AM PDT) + + + + + + | Component | Value | Ref Range | Performed | Pathologist | | | | | At | Signature | + + + + + + | ABO | O | | [facility] | | | | | | [facility] | | | | | | [facility] | | | | | | [facility] - | | | | | | BLOOD BANK | | + + + + + + | Rh Type | Positive | | [facility] | | | | | | [facility] | | | | | | [facility] | | | | | | [facility] - | | | | | | BLOOD BANK | | + + + + + + | Antibody | Negative | | [facility] | | | Screen | | | [facility] | | | | | | [facility] | | | | | | [facility] - | | | | | | BLOOD BANK | | + + + + + + + + | Specimen | + + | Blood specimen | | (specimen) | + + + + + + + | Performing | Address | City/State/Zipcode | Phone Number | | Organization | | | | + + + + + | [facility] | [address] | [place] | | | [facility] | | [address] | | | - BLOOD BANK | | | | + + + + + CBC no Differential (06/22/2016 2:22 AM PDT) + + + + + + | Component | Value | Ref Range | Performed | Pathologist | | | | | At | Signature | + + + + + + | White Blood | 13.4 (H) | 4.0 - 11.0 K/uL | [facility] | | | Cells | | | [facility] | | | | | | [facility] | | | | | [facility] - | | | | | | LABORATORY | | + + + + + + | Red Blood | 4.66 | 3.70 - 5.20 | [facility] | | | Cells | | M/uL | [facility] | | | | | | [facility] | | | | | | [facility] - | | | | | | LABORATORY | | + + + + + + | Hemoglobin | 15.1 | 11.5 - 16.0 | [facility] | | | | | g/dL | [facility] | | | | | | [facility] | | | | | | CENTER - | | | | | | LABORATORY | | + + + + + + | Hematocrit | 41.6 | 34.0 - 47.0 % | [facility] | | | | | | [facility] | | | | | | [facility] | | | | | | [facility] - | | | | | | LABORATORY | | + + + + + + | MCV | 89.4 | 83.0 - 101.0 fL | [facility] | | | | | | [facility] | | | | | | [facility] | | | | | | C[facility] - | | | | | | LABORATORY | | + + + + + + | MCH | 32.3 | 28.0 - 35.0 pg | [facility] | | | | | | [facility] | | | | | | [facility] | | | | | | CENTER - | | | | | | LABORATORY | | + + + + + + | MCHC | 36.2 (H) | 32.0 - 36.0 | [facility] | | | | | g/dL | [facility] | | | | | | [facility] | | | | | | CENTER - | | | | | | LABORATORY | | + + + + + + | RDW-CV | 13.4 | <15.0 % | [facility] | | | | | | [facility] | | | | | | [facility] | | | | | | [facility] - | | | | | | LABORATORY | | + + + + + + | Platelet | 250 | 140 - 440 K/uL | [facility] | | | Count | | | [facility] | | | | | | [facility] | | | | | | [facility] - | | | | | | LABORATORY | | + + + + + + | MPV | 7.8 | fL | [facility] | | | | | | [facility] | | | | | | [facility] | | | | | | [facility] - | | | | | | LABORATORY | | + + + + + + + + | Specimen | + + | Blood | + + + + + + + | Performing | Address | City/State/Zipcode | Phone Number | | Organization | | | | + + + + + | [facility] | [address] | [place] | [phone] | | [facility] | | [address] | | | - LABORATORY | | | | + + + + + documented in this encounter Visit Diagnoses + + | Diagnosis | + + | care and examination - Primary Routine follow-up | + + documented in this encounter Administered Medications + +--------+ +------+------+------+ | Medication Order | MAR | Action | Dose | Rate | Site | | | Action | Date | | | | + +--------+ +------+------+------+ | benzocaine 20%-menthol | Given | 06/22/20 | | | | | (DERMOPLAST) topical spray | | 16 9:22 | | | | | Topical, EVERY 6 HOURS PRN, Pain, | | AM PDT | | | | | Starting Demetrice 06/22/16 at 0425, | | | | | | | | | | | | | + +--------+ +------+------+------+ +---+---+ | | | +---+---+ + +-------+ +--------+---+---+ | docusate sodium (COLACE) | Given | 06/22/20 | 200 mg | | | | capsule 200 mg 200 mg, Oral, | | 16 9:00 | | | | | NIGHTLY, First dose on Sun | | PM PDT | | | | | 06/22/16 at 0445, Hold for loose | | | | | | | stools, | | | | | | + +-------+ +--------+---+---+ +---+---+ | | | +---+---+ + +-------+ +---+---+---+ | fentaNYL (PF) 50 mcg/mL | Given | 06/22/20 | | | | | injection Starting Demetrice 06/22/16 | | 16 2:30 | | | | | at 0222, For 1 dose, , | | AM PDT | | | | | DEEPA: tayo barboza, | | | | | | + +-------+ +---+---+---+ +---+---+ | | | +---+---+ + +-------+ +---------+---+---+ | fentaNYL (PF) injection 50-100 | Given | 06/22/20 | 100 mcg | | | | mcg 50-100 mcg, Intravenous, | | 16 2:22 | | | | | EVERY 1 HOUR PRN, Pain, Starting | | AM PDT | | | | | Demetrice 06/22/16 at 0217, Maximum | | | | | | | total dose is 200 mcg., Labor and | | | | | | | Delivery | | | | | | + +-------+ +---------+---+---+ +---+---+ | | | +---+---+ + +-------+ + +---+---+ | HYDROcodone-acetaminophen | Given | 06/23/20 | 1 tablet | | | | (NORCO) 5-325 mg per tablet 1-2 | | 16 5:21 | | | | | tablet 1-2 tablet, Oral, EVERY 4 | | PM PDT | | | | | HOURS PRN, Pain, Starting Demetrice | | | | | | | 06/22/16 at 0425, If ineffective | | | | | | | or not tolerated, use oxycodone | | | | | | | if ordered., | | | | | | + +-------+ + +---+---+ +-------+ + +---+---+ | Given | 06/23/20 | 1 tablet | | | | | 16 3:45 | | | | | | AM PDT | | | | +-------+ + +---+---+ | Given | 06/22/20 | 1 tablet | | | | | 16 8:09 | | | | | | PM PDT | | | | +-------+ + +---+---+ +---+---+ | | | +---+---+ + +-------+ +--------+---+---+ | ibuprofen (ADVIL,MOTRIN) tablet | Given | 06/23/20 | 600 mg | | | | 600 mg 600 mg, Oral, EVERY 6 | | 16 1:47 | | | | | HOURS PRN, Pain, Starting Demetrice | | PM PDT | | | | | 06/22/16 at 0425, If urine output | | | | | | | is less than 240 mL/8 hours (30 | | | | | | | mL/hr) or if signs of bleeding, | | | | | | | contact MD and hold ibuprofen., | | | | | | | | | | | | | + +-------+ +--------+---+---+ +-------+ +--------+---+---+ | Given | 06/23/20 | 600 mg | | | | | 16 3:45 | | | | | | AM PDT | | | | +-------+ +--------+---+---+ | Given | 06/22/20 | 600 mg | | | | | 16 4:25 | | | | | | PM PDT | | | | +-------+ +--------+---+---+ +---+---+ | | | +---+---+ + +---------+ +---+-------+---+ | lactated ringers (LR) infusion | New Bag | 06/22/20 | | 100 | | | at 100 mL/hr, Intravenous, | | 16 2:32 | | mL/hr | | | CONTINUOUS, Starting Demetrice 06/22/16 | | AM PDT | | | | | at 0245, Labor and Delivery | | | | | | + +---------+ +---+-------+---+ +---+---+ | | | +---+---+ + +-------+ +---+---+---+ | lanolin ointment Topical, PRN, | Given | 06/22/20 | | | | | Dry Skin, for moist wound | | 16 9:22 | | | | | healing, Starting Sun06/22/16 at | | AM PDT | | | | | 0425, Apply to nipples. May keep | | | | | | | at bed side., | | | | | | + +-------+ +---+---+---+ +---+---+ | | | +---+---+ + +-------+ + +---+---+ | 27-0.8 mg multivitamin | Given | 06/23/20 | 1 tablet | | | | 1 tablet 1 tablet, Oral, DAILY, | | 16 8:40 | | | | | First dose on [facility] 9/15/16 at | | AM PDT | | | | | 0900, | | | | | | + +-------+ + +---+---+ +-------+ + +---+---+ | Given | 06/22/20 | 1 tablet | | | | | 16 9:21 | | | | | | AM PDT | | | | +-------+ + +---+---+ +---+---+ | | | +---+---+ documented in this encounter"
--- OUTSIDE RECORDS SUMMARY | ~2020-05-27 | XMS | Encounter Summary ---
Demographics + + + | Address | [address] | | | [place] [address] | + + + | Home Phone | | + + + | Preferred Language | Unknown | + + + | Marital Status | Single | + + + | Hoahaoism Affiliation | Unknown | + + + | Race | Unknown | + + + | Ethnic Group | Other Race | + + + Author + + + | Author | [facility] | + + + | Organization | [facility] | + + + | Address | Unknown | + + + | Phone | Unavailable | + + + Care Team Providers + +------+ + | Care Jewelry Sales Representative Name | Role | Phone | + +------+ + PCP | Unavailable | + +------+ + Encounter Details +--------+ + + + + | Date | Type | Department | Care Team | Description | +--------+ + + + + | 03/27/ | Hospital | Dermatopathology | | | | 2012 | Encounter | [address] | | | | | | Mailcode: [id number] | | | | | | [facility] | | | | | | and Healing, | | | | | | [address] | | | | | | Floor [place], [place] | | | | | | [address] | | | | | | [phone] | | | +--------+ + + + [...] recent travel history available. | + + documented as of this encounter Plan of Treatment Not on filedocumented as of this encounter Procedures + +--------+ + + + | Procedure Name | Priori | Date/Time | Associated Diagnosis | Comments | | | ty | | | | + +--------+ + + + | DERMATOPATHOLOGY(WET | Routin | 03/27/2013 | | Results for this | | [facility]) | e | | | procedure are in the | | | | | | results section. | + +--------+ + + + documented in this encounter Results DERMATOPATHOLOGY(WET [facility]) (03/27/2013) + + + + + + | Component | Value | Ref Range | Performed | Pathologist | | | | | At | Signature | + + + + + + | DERMATOPATH | SOURCE OF SPECIMEN:A Lt. | | [facility] | | | OLOGY(WET | inferior buttock, shave | | DERMATOPATH | | | MNT) | biopsy CLINICAL | | OLOGY | | | | DESCRIPTION:8x6 mm flesh | | | | | | color soft papule | | | | | | essential crust; r/o | | | | | | KA/SCC vs PG vssebaceous | | | | | | cyst. GROSS | | | | | | DESCRIPTION:Received in | | | | | | formalin is a specimen | | | | | | labeled Prashanth, | | | | | | Casey:A: Specimen is | | | | | | labeled "L inf buttock" | | | | | | and consists of an | | | | | | irregular shaveof | | | | | | tellez-black papular skin, | | | | | | [id number]. The surgical | | | | | | margin is inked black; | | | | | | thetissue is trisected, | | | | | | and entirely submitted | | | | | | in cassette A1. | | | | | | MICROSCOPIC | | | | | | DESCRIPTION:There are | | | | | | large, intracytoplasmic, | | | | | | eosinophilic to | | | | | | basophilic | | | | | | viralinclusions within | | | | | | keratinocytes in the | | | | | | smith of follicular | | | | | | infundibulaewith a | | | | | | surrounding lymphocytic | | | | | | infiltrate. | | | | | | DIAGNOSIS:MOLLUSCUM | | | | | | CONTAGIOSUM. | | | | | | VBK:mm03/31/13 My | | | | | | electronic signature | | | | | | indicates that I have | | | | | | personally reviewed | | | | | | alldiagnostic slides, | | | | | | the gross and/or | | | | | | microscopic portion of | | | | | | thisreport and | | | | | | formulated the final | | | | | | diagnosis. | | | | | | Rendering Diagnostician: | | | | | | Adolfo Escalante | | | | | | M.D.PathologistElectroni | | | | | | daniel Signed 04/01/2013 | | | | | | 1:42PM | | | | + + + + + + + + | Specimen | + + | | + + + + + + + | Performing | Address | City/State/Zipcode | Phone Number | | Organization | | | | + + + + + | [facility] | Mailcode [id number] | [place] [address] | | | DERMATOPATHOLOGY | [address] | | | + + + + + | [facility] | Mailcode [id number] | [place] [address] | | | DERMATOPATHOLOGY | [address] | | | + + + + + documented in this encounter Visit Diagnoses Not on filedocumented in this encounter
--- OUTSIDE RECORDS SUMMARY | ~2020-05-27 | XMS | Encounter Summary ---
Demographics + + + | Address | [address] [facility] | | | [place] [address] | + + + | Home Phone | | + + + | Preferred Language | Unknown | + + + | Marital Status | Single | + + + | Spiritism Affiliation | Unknown | + + + | Race | White | + + + | Ethnic Group | Not or | + + + Author + + + | Author | [facility] | | | and [place] | + + + | Organization | [facility] | | [...] [place], | | | | | [place] [address] | | + + + + + | Bernarda Cunningham | ECON | [address] | | | | | [place], [place] | | | | | [address] | | + + + + + Care Team Providers + +------+ + | Care [employer] Name | Role | Phone | + +------+ + | Unknown, Physician | PCP | | + +------+ + Reason for Referral Evaluate & Treat (Routine) +--------+ + + + + + | Status | Reason | Specialty | Diagnoses / | Referred By | Referred To | | | | | Procedures | Contact | Contact | +--------+ + + + + + | Closed | Specialty | | Diagnoses | [facility], | | | | Services | Services / | At risk for | Abner Mcelroy MD | | | | Required | | ineffective | [id number] | | | | | and | | [place] | | | | | | breastfeedin | [place] | | | | | | [place] | [place], | | | | | | | [place] [address] | | | | | | | Phone: | | | | | | | [phone] | | | | | | | Fax: | | | | | | | [phone] | | +--------+ + + + + + (Routine) +--------+ + + + + + | Status | Reason | Specialty | Diagnoses / | Referred By | Referred To | | | | | Procedures | Contact | Contact | +--------+ + + + + + | Closed | Specialty | Obstetrics | Diagnoses | [facility], | | | | Services | and | At risk for | Abner Mcelroy MD | | | | Required | Gynecology | ineffective | [address] | | | | | | | [place] | | | | | | breastfeedin | [place] | | | | | | [place] | [place], | | | | | | | [place] [address] | | | | | | | Phone: | | | | | | | [phone] | | | | | | | Fax: | | | | | | | [phone] | | +--------+ + + + + + Reason for Visit Auth/Cert +--------+--------+ + + + + | Status | Reason | Specialty | Diagnoses / | Referred By | Referred To | | | | | Procedures | Contact | Contact | +--------+--------+ + + + + | Closed | | | | | | +--------+--------+ + + + + Encounter Details +--------+ + + + + | Date | Type | Department | Care Team | Description | +--------+ + + + + | 01/22/ | Hospital | [facility] | Abner Goel, | At risk for | | 2014 - | Encounter | [facility] | [id number] | ineffective | | | | [address] | [facility] [place] | | | 01/24/ | | [place] | [place] [address] | (Primary Dx) | | 2013 | | [address] | [phone] | | | | | [phone] | | | +--------+ + + + [...] + + + | Blood Pressure | 118/86 | 01/24/2014 12:00 PM | | | | | PDT | | + + + + + | Pulse | 90 | 01/24/2014 12:00 PM | | | | | PDT | | + + + + + | Temperature | 36.9 C (98.4 F) | 01/24/2014 12:00 PM | | | | | PDT | | + + + + + | Respiratory Rate | 16 | 01/24/2014 12:00 PM | | | | | PDT | | + + + + + | Oxygen Saturation | - | - | | + [...] documented in this encounter Discharge Instructions Instructions Codi Tillman RN - 01/24/2014Formatting of this note might be different fr om the original. DISCHARGE INSTRUCTIONS Warning Signs Check List Notify [...] cold and have the chills (you are cliff vering). Urination that is painful, difficult, or too [...] warmth or firmness in the lower calf. Activity/Exercise Do not drive while you are taking narcotics. If you had a secion, try driving maneuvers while parked to ensure [...] you if additional restric tions apply to you . Bowels and Regularity constipation is common; You make take Docusate sodium or Milk of Magnesia to alleviate discomfort Painful bowel movements or rectal pain may result from hemorrhoids; use Tucks and/or to pical treatment like Anusol-HC. Sitz baths can also help Normal Bleeding Vaginal spotting may last up [...] with a clean towel. If you have luci; you may shower, (no tub bathing) and dry gently with a clean towel. If you had [...] lubricate your vagina, you may purchase a water-s oluble lubricant (e.g., Astroglide) from your local drug store. This will help make interco urse more comfortable. documented in this encounter Medications [...] documented as of this encounter Progress Notes Rupesh Baker, DO - 01/24/2014 9:08 AM PDTFormatting of this note might be diffe rent from the original. OBSTETRICAL PROGRESS NOTE Casey Yakelin Prashanth : 1990 Hospital Day: 3 2 days post vaginal delivery Subjective The patient feels well. Her pain is well controlled with current medications. Urinary outp ut is adequate. The patient is ambulating well. She is tolerating a regular diet well. Objective Vitals Current Average / Min / Max Temp 36.8 C (98.2 F) Temp Min: 36 C (96.8 F) Max: 36.8 C (98.2 F) BP 117/81 mmHg BP Min: 115/76 Max: 127/83 HR 95 Pulse Av.2 Min: 91 Max: 103 RR 16 Resp Av Min: 16 Max: 16 Sats No Data Recorded Weight 97.07 kg (214 lb) Admit: 97.07 kg (214 lb) BMI Body mass index is 36.72 kg/(m^2). No intake or output data in the 24 hours ending 01/24/14 0916 General: alert and appropriate in NAD Respiratory: clear to auscultation bilaterally Cardiovascular: regular rate and rhythm Lochia: thin lochia UterineFundus: firm and nontender DVT Evaluation: No evidence of DVT seen on physical exam. Labs: No results found for this or any previous visit (from the past 12 hour(s)). Assessment & Plan Active Problems: * No active hospital problems. * Status post vaginal delivery. Doing well . Discharge to banner Electronically signed: Rupesh Baker DO 01/24/2014 9:16 Mj Taylor RN - 01/24/2014 7:09 AM PDTPatient slept well in the night, napping between feeds. Us ing Ibuprofen only for pain. Evelyn Taylor RN - 01/23/2014 8:00 PM PDTPt. Asleep, S.O. Will call when she mirta kens. Damian Rapp RN - 01/23/2014 11:55 AM PDTHandoff report to RAFIQ BURNS. Damian Rapp RN - 01/23/2014 9:55 AM PDTReceived report fr om KATY RN and assumed care of patient. 14 10:18 AM Josee Vega RN - 01/23/2014 9:43 AM PDTAssessment completed, c/o pa in medicated with ibuprofen per patients request. Rupesh Renteria DO - 01/23/2014 8:16 AM PDTFormatti vipin of this note might be different from the original. OBSTETRICAL PROGRESS NOTE Casey Alford : 1990 Hospital Day: 2 1 day post vaginal delivery Subjective The patient feels well and voices no concerns. Her pain is well controlled with current me dications. Urinary output is adequate. The patient is ambulating well. She is tolerating a r egular diet well. Objective Vitals Current Average / Min / Max Temp 36.3 C (97.3 F) Temp Min: 36.3 C (97.3 F) Max: 37 C (98.6 F) BP 117/73 mmHg BP Min: 116/69 Max: 136/69 HR 105 Pulse Av.3 Min: 91 Max: 105 RR 16 Resp Av Min: 16 Max: 16 Sats No Data Recorded Weight 97.07 kg (214 lb) Admit: 97.07 kg (214 lb) BMI Body mass index is 36.72 kg/(m^2). No intake or output data in the 24 hours ending 01/23/14 0819 General: alert and appropriate in NAD Respiratory: clear to auscultation bilaterally Cardiovascular: regular rate and rhythm Lochia: moderate lochia UterineFundus: firm and nontender DVT Evaluation: No evidence of DVT seen on physical exam. Labs: Recent Results (from the past 12 hour(s)) CBC NO DIFFERENTIAL Collection Time 01/23/14 0703 Component Value Range WBC 10.8 4.0-11.0 K/uL RBC 4.18 3.70-5.20 M/uL Hgb 12.4 11.5-16.0 g/dL Hct 36.4 34.0-47.0 % MCV 87.2 83.0-101.0 fL MCH 29.6 28.0-35.0 pg MCHC 33.9 32.0-36.0 g/dL RDW 14.2 <15.0 % Platelet Count 232 140-440 K/uL MPV 8.3 Assessment & Plan Active Problems: * No active hospital problems. * Status post vaginal delivery. Doing well . Continue current care. Electronically signed: Rupesh Baker DO 01/23/2014 8:19 documented i n this encounter H&P Notes Abner Goel MD - 01/22/2014 4:27 AM PDTAdmission note S-briefly, Ms. Alford is a 23-year-old 1 para 0 woman at approximately 39 weeks gest ation who presented to labor and delivery late last night in early active labor. She has be en followed by Dr. Baker throughout her , which was complicated only by an ab normal Pap smear which showed low-grade squamous intraepithelial lesion. She was also group B strep positive and accepts antibiotics in labor. O-VSS Exam is unremarkable and at my initial evaluation cervical exam was complete/complete and + 2 station. heart rate tracing category 1 in first stage labor. Contractions every 2-3 minutes. A/L-64-wwsc-old 1 para 0 woman doing well in the second stage of labor. Anticipate . She has received 1 dose of prophylactic antibiotic. documented in this encounter Consult Notes Geraldine Thomson RN - 01/23/2014 1:45 PM PDTThe pt has inverted nipples, pt given an d shown how to use Medela shells to help bring her nipples out-- also given a nipple shield to improve the babys latch-- pt has tried intermittently to latch the baby without the shiel d -- the baby is able to latch correctly but the nipples invert and the mother is experienci ng pain with her latch-- mother is able to hand express colostrum easily-- baby seems conten t following her feeds P M PDTdocumented in this encounter Miscellaneous Notes Pulmonary Function - [facility] - 02/03/2014 12:00 AM PDT lan of Care - [facility] - 02/03/2014 12:00 AM PD T lan of Care - Juan Martins RN - 01/22/2014 6:27 PM PDTProblem: General Plan of Care (Adult, Obstetrics) Goal: Care Plan Shift Summary & Review . Pain of lacerations decreasing over the course of the day. Patient up numerous times today to void. lan of Care - Damian Martins RN - 01/22/2014 9:19 AM PDTProblem: General Plan of Care (Adult, Obstetrics) Goal: Individualization/Patient-Specific Goal (Adult, Obstetrics) Individualization: Patient s unique needs, preferences, requests, personal goals, or care interventions/approaches. Patient prefers to breast feed baby. p Manny - Ghassan Goel MD - 01/22/2014 4:34 AM PDTDelivery summary Briefly, Ms. Alford is a 23-year-old 1 now para 1 woman who presented in active labo r late last evening. She progressed rapidly in active labor and after a second stage which lasted approximately 30 minutes she delivered a vigorous 9 lbs. 8 oz. little girl with s of 8 and 9 over a second-degree midline laceration and right eze-clitoral laceration. In jesse was bulb suctioned on the perineum and there were no nuchal cords encountered. Shoulde rs and body followed without difficulty and was placed on the maternal abdomen. Ther e is a normal third stage of labor with appropriate blood loss. Using 1% Carbocaine and 3-0 Vicryl suture, the second-degree midline laceration was repaired. Using the same local ane sthetic and both 3-0 and 4-0 Vicryl her right periclitoral laceration was repaired. Both mo ther and are doing well in the immediate period. Casey plans to breast- feed and will see Dr. Baker back in the office in 6 weeks for routine care. documented in this e ncounter Plan of Treatment + + +--------+ + + | Name | Type | Priori | Associated Diagnoses | Order Schedule | | | | ty | | | + + +--------+ + + | Amb referral to | Outpatient | Routin | At risk for | 1 Occurrences | | | Referral | e | ineffective | starting 01/22/2014 | | | | | | until 01/22/2015 | + + +--------+ + + | Ambulatory referral | Outpatient | Routin | At risk for | 1 Occurrences | | to | Referral | e | ineffective | starting 01/22/2014 | | | | | | until 01/22/2015 | + + +--------+ + + documented as of this encounter Procedures + +--------+ + + + | Procedure Name | Priori | Date/Time | Associated Diagnosis | Comments | | | ty | | | | + +--------+ + + + | CBC NO DIFFERENTIAL | Routin | 01/23/2014 | | Results for this | | | e | 7:03 AM | | procedure are in the | | | | PDT | | results section. | + +--------+ + + + | CULTURE, STREP GROUP | Routin | 12/29/2013 | | Results for this | | B | e | | | procedure are in the | | | | | | results section. | + +--------+ + + + | C. TRACHOMATIS AND | Routin | 06/20/2013 | | Results for this | | N. GONORRHOEAE, NAAT | e | | | procedure are in the | | | | | | results section. | + +--------+ + + + | ABO RH | Routin | 06/20/2013 | | Results for this | | | e | | | procedure are in the | | | | | | results section. | + +--------+ + + + | RUBELLA AB, IGG | Routin | 06/20/2013 | | Results for this | | | e | | | procedure are in the | | | | | | results section. | + +--------+ + + + | RAPID PLASMA REAGIN, | Routin | 06/20/2013 | | Results for this | | QUAL | e | | | procedure are in the | | | | | | results section. | + +--------+ + + + | HEPATITIS B SURFACE | Routin | 06/20/2013 | | Results for this | | AG | e | | | procedure are in the | | | | | | results section. | + +--------+ + + + | ANTIBODY SCREEN | Routin | 06/20/2013 | | Results for this | | | e | | | procedure are in the | | | | | | results section. | + +--------+ + + + documented in this encounter Results CBC no Differential (01/23/2014 7:03 AM PDT) + +-------+ + + + | Component | Value | Ref Range | Performed | Pathologist | | | | | At | Signature | + +-------+ + + + | White Blood | 10.8 | 4.0 - 11.0 K/uL | [facility] | | | Cells | | | [facility] | | | | | | [facility] | | | | | [facility] - | | | | | | LAB[facility]ATORY | | + +-------+ + + + | Red Blood | 4.18 | 3.70 - 5.20 | [facility] | | | Cells | | M/uL | [facility] | | | | | | [facility] | | | | | | [facility] - | | | | | | LABORATORY | | + +-------+ + + + | Hemoglobin | 12.4 | 11.5 - 16.0 | [facility] | | | | | g/dL | [facility] | [facility] | | | | | | [facility] - | | | | | | LABORATORY | | + +-------+ + + + | Hematocrit | 36.4 | 34.0 - 47.0 % | [facility] | | | | | | [facility] | | | | | | [facility] | | | | | | [facility] - | | | | | | LABORATORY | | + +-------+ + + + | MCV | 87.2 | 83.0 - 101.0 fL | [facility] | | | | | | [facility] | | | | | | [facility] | | | | | | [facility] - | | | | | | LABORATORY | | + +-------+ + + + | MCH | 29.6 | 28.0 - 35.0 pg | [facility] | | | | | | [facility] | | | | | | [facility] | | | | | | [facility] - | | | | | | LABORATORY | | + +-------+ + + + | MCHC | 33.9 | 32.0 - 36.0 | [facility] | | | | | g/dL | [facility] | | | | | | [facility] | | | | | | [facility] - | | | | | | LABORATORY | | + +-------+ + + + | RDW-CV | 14.2 | <15.0 % | [facility] | | | | | | [facility] | | | | | | [facility] | | | | | | [facility] - | | | | | | LABORATORY | | + +-------+ + + + | Platelet | 232 | 140 - 440 K/uL | [facility] | | | Count | | | [facility] | | | | | | [facility] | | | | | | [facility] - | | | | | | LABORATORY | | + +-------+ + + + | MPV | 8.3 | fL | [facility] | | | | | | [facility] | | | | | | [facility] | | | | | | [facility] - | | | | | | LABORATORY | | + +-------+ + + + + + | Specimen | + + | Blood | + + + + + + + | Performing | Address | City/State/Zipcode | Phone Number | | Organization | | | | + + + + + | [facility] | [address] | [place] | [phone] | | [facility] | | [address] | | | - LABORATORY | | | | + + + + + | [facility] | [address] | [place], [place] | | | [facility] | | [address], [facility] | | | - LABORATORY | | | | + + + + + Culture,Strep Group B (12/29/2013) + + + + + + | Component | Value | Ref Range | Performed | Pathologist | | | | | At | Signature | + + + + + + | GBS result, | Positive (A) | Negative | | | | External | | | | | + + + + + + + + | Specimen | + + | Specimen from | | genital system | | (specimen) - | | Vagina/Rectum | + + Rapid Plasma Reagin, Qual (06/20/2013) + + + + + + | Component | Value | Ref Range | Performed | Pathologist | | | | | At | Signature | + + + + + + | RPR, | Non-Reactive | Non-Reactive | | | | External | | | | | + + + + + + + + | Specimen | + + | Blood specimen | | (specimen) | + + Antibody Screen (06/20/2013) + + + + + + | Component | Value | Ref Range | Performed | Pathologist | | | | | At | Signature | + + + + + + | Antibody | Negative | Negative | | | | Screen, | | | | | | External | | | | | + + + + + + + + | Specimen | + + | Blood specimen | | (specimen) | + + Rubella Ab, IgG (06/20/2013) + +--------+ + + + | Component | Value | Ref Range | Performed | Pathologist | | | | | At | Signature | + +--------+ + + + | Rubella, | Immune | | | | | External | | | | | + +--------+ + + + + + | Specimen | + + | Blood specimen | | (specimen) | + + Hepatitis B Surface Ag (06/20/2013) + + + + + + | Component | Value | Ref Range | Performed | Pathologist | | | | | At | Signature | + + + + + + | HBsAg, | Non-Reactive | Non-Reactive | | | | External | | | | | + + + + + + + + | Specimen | + + | Blood specimen | | (specimen) | + + C. trachomatis and N. gonorrhoeae, NAAT (06/20/2013) + + + + + + | Component | Value | Ref Range | Performed | Pathologist | | | | | At | Signature | + + + + + + | Chlamydia, | Negative | Negative | | | | External | | | | | + + + + + + + + | Specimen | + + | Specimen from | | genital system | | (specimen) | + + ABO Rh (06/20/2013) + + + + + + | Component | Value | Ref Range | Performed | Pathologist | | | | | At | Signature | + + + + + + | ABORH | O Positive | | | | | EXTERNAL | | | | | + + + + + + + + | Specimen | + + | Blood specimen | | (specimen) | + + documented in this encounter Visit Diagnoses + + | Diagnosis | + + | At risk for ineffective - Primary | + + documented in this encounter Administered Medications + +--------+ + +------+ + | Medication Order | MAR | Action | Dose | Rate | Site | | | Action | Date | | | | + +--------+ + +------+ + | benzocaine 20%-menthol | Given | 01/23/20 | 1 | | Other | | (DERMOPLAST) topical spray | | 14 8:41 | Applicat | | (Comment | | Topical, EVERY 6 HOURS PRN, Pain, | | PM PDT | ion | | ) | | Starting [facility] 01/22/14 at 0449, | | | | | | | | | | | | | + +--------+ + +------+ + +---+---+ | | | +---+---+ + +-------+ +--------+---+---+ | docusate sodium (COLACE) | Given | 01/24/20 | 200 mg | | | | capsule 200 mg 200 mg, Oral, | | 14 9:01 | | | | | NIGHTLY, First dose on Demetrice | | PM PDT | | | | | 01/22/14 at 2100, Hold for loose | | | | | | | stools, | | | | | | + +-------+ +--------+---+---+ +-------+ +--------+---+---+ | Given | 01/23/20 | 200 mg | | | | | 14 8:41 | | | | | | PM PDT | | | | +-------+ +--------+---+---+ +---+---+ | | | +---+---+ + +-------+ +--------+---+---+ | fentaNYL injection 50-100 mcg | Given | 01/23/20 | 50 mcg | | | | 50-100 mcg, Intravenous, EVERY 1 | | 14 4:02 | | | | | HOUR PRN, Pain, Starting Demetrice | | AM PDT | | | | | 01/22/14 at 0038, Maximum total | | | | | | | dose is 200 mcg., | | | | | | + +-------+ +--------+---+---+ +---+---+ | | | +---+---+ + +-------+ + +---+---+ | HYDROcodone-acetaminophen | Given | 01/23/20 | 1 tablet | | | | (NORCO) 5-325 mg per tablet 1-2 | | 14 2:55 | | | | | tablet 1-2 tablet, Oral, EVERY 4 | | PM PDT | | | | | HOURS PRN, Pain, Starting Demetrice | | | | | | | 01/22/14 at 0449, If ineffective | | | | | | | or not tolerated, use oxycodone | | | | | | | if ordered., | | | | | | + +-------+ + +---+---+ +---+---+ | | | +---+---+ + +-------+ +---+---+---+ | hydrocortisone 1% cream | Given | 01/25/20 | | | | | Topical, 2 TIMES DAILY, First | | 14 9:00 | | | | | dose on Sun01/23/14 at 2100 | | AM PDT | | | | + +-------+ +---+---+---+ +-------+ +---+---+---+ | Given | 01/24/20 | | | | | | 14 4:19 | | | | | | PM PDT | | | | +-------+ +---+---+---+ +---+---+ | | | +---+---+ + +-------+ +--------+---+---+ | ibuprofen (ADVIL,MOTRIN) tablet | Given | 01/25/20 | 800 mg | | | | 800 mg 800 mg, Oral, EVERY 8 | | 14 1:15 | | | | | HOURS PRN, Pain, Starting Demetrice | | PM PDT | | | | | 01/22/14 at 0449, If urine output | | | | | | | is less than 240 mL/8 hours (30 | | | | | | | mL/hr) or if signs of bleeding, | | | | | | | contact MD and hold ibuprofen., | | | | | | | | | | | | | + +-------+ +--------+---+---+ +-------+ +--------+---+---+ | Given | 01/25/20 | 800 mg | | | | | 14 4:59 | | | | | | AM PDT | | | | +-------+ +--------+---+---+ | Given | 01/24/20 | 800 mg | | | | | 14 9:01 | | | | | | PM PDT | | | | +-------+ +--------+---+---+ +---+---+ | | | +---+---+ + +---------+ +---+-------+---+ | lactated ringers (LR) infusion | New Bag | 01/23/20 | | 100 | | | at 100 mL/hr, Intravenous, | | 14 1:00 | | mL/hr | | | CONTINUOUS, Starting Demetrice 01/22/14 | | AM PDT | | | | | at 0100 | | | | | | + +---------+ +---+-------+---+ +---+---+ | | | +---+---+ + +-------+ +---+---+---+ | lanolin ointment Topical, PRN, | Given | 01/23/20 | | | | | Dry Skin, for moist wound | | 14 8:41 | | | | | healing, Starting [facility] 01/22/14 at | | PM PDT | | | | | 0449, Apply to nipples. May keep | | | | | | | at bed side., | | | | | | + +-------+ +---+---+---+ +---+---+ | | | +---+---+ + +---------+ + +-------+---+ | oxytocin in saline (PITOCIN) 30 | New Bag | 01/23/20 | 999 | 999 | | | units/500 mL (60 margarita-units/mL) | | 14 3:35 | margarita-un | mL/hr | | | infusion 0-999 margarita-units/min | | AM PDT | its/min | | | | (rounded to 0-999 mL/hr), at | | | | | | | 0-999 mL/hr, Intravenous, | | | | | | | CONTINUOUS PRN, to control | | | | | | | bleeding, Starting [facility] 01/22/14 at | | | | | | | 0449, For 24 hours, Stop if | | | | | | | bleeding is controlled, bladder | | | | | | | not distended, | | | | | | + +---------+ + +-------+---+ +---+---+ | | | +---+---+ + +---------+ + +-------+---+ | penicillin G potassium 5 | New Bag | 01/23/20 | 5 | 100 | | | Million Units in sodium chloride | | 14 1:00 | Million | mL/hr | | | 0.9% 100 mL IVPB 5 Million | | AM PDT | Units | | | | Units, Intravenous, Administer | | | | | | | over 60 Minutes, ONCE, Demetrice | | | | | | | 01/22/14 at 0100, For 1 dose, | | | | | | | Activate system and mix before | | | | | | | use., | | | | | | + +---------+ + +-------+---+ +---+---+ | | | +---+---+ + +-------+ +--------+---+ + | arely MANJARREZ) pads | Given | 01/23/20 | 2 each | | Other | | Topical, EVERY 1 HOUR PRN, | | 14 8:42 | | | (Comment | | Discomfort, Starting Demetrice 01/22/14 | | PM PDT | | | ) | | at 0449, | | | | | | + +-------+ +--------+---+ + +---+---+ | | | +---+---+ documented in this encounter
--- NOTE | 2020-05-27 16:32 | NUR ---
05/27/20 1632 Ana Knutson 1625- PT ARRIVES TO RECOVERY ROOM #10 NONAROUSABLE TO NOXIOUS STIMULI WITH AN OPA IN PLACE. PT RECEIVING 6L OF O2 VIA MASK. OXYGEN SAT HIGH 90'S TO 100% ON THIS. RESP EVEN AND UNLABORED. 1630- PT AROUSING ON HER OWN AND TRYING TO PULL OUT OPA. PT INSTRUCTED TO OPEN HER MOUTH. PT IS ABLE TO FOLLOW THIS COMMAND AND OPA REMOVED.
--- NOTE | 2020-05-27 17:15 | NUR ---
CALLED TO [facility] FOR DEMISE. DAD FANTA HAD EXPRESSED DESIRE TO TALK WITH ROAD BOSS. MOM RODGER WAS IN SURGERY AND NOT IN ROOM. DAD EXPRESSED RELIEF AT CONCLUSION WELL SADNESS AT LOSS. GRIEF WAS PRESENT BUT HE APPEARED CALM. WE TALKED OF LOSS OF POTENTIAL AND DESIRE TO GET HOME AND "MOVE ON" AND OF THE BLESSING THAT MOM RODGER WAS OK AND WOULD RECOVER. FANTA EXPRESSED SOME CONCERN AROUND HELPING OTHER CHILDREN, AGED 4 AND 6 TO UNDERSTAND WHAT HAD HAPPENED. I OBTAINED FANTA'S SIGNATURE ON INFORMATION TO HOME FORM. FANTA INDICATED THEY HAD CHOSEN THE [facility] BURIAL FOR THE FETUS AND SIGNED BURIAL FORM. PRAYED WITH FANTA FOR PEACE AND COMFORT. RODGER RETURNED FROM SURGERY AND DID NOT WISH TO TALK SO I EXITED THE ROOM. ROAD BOSS TONEY WILL CONTINUE CARE ACCORDING TO DEMISE PROCEDURE.
--- NOTE | 2020-05-28 07:28 | OR ---
[facility] [address] [place] [id number] Signed DATE OF OPERATION: 05/27/2020 SURGEON: Brannon Mccabe MD Patient of Dr. Mccabe. PRIMARY CARE PHYSICIAN: Paulie Cleary MD. PREOPERATIVE DIAGNOSES: 1. Missed . 2. Retained placenta. POSTOPERATIVE DIAGNOSES: 1. Missed . 2. Retained placenta. PROCEDURE PERFORMED: curettage. ANESTHESIA: General. ESTIMATED BLOOD LOSS: 50 mL. COMPLICATIONS: None. DRAINS: None. FINDINGS: Cervix 2 cm thick and there was moderate amount of blood clot in the vagina and cervix. The uterus was soft, boggy, palpable, approximately 12 week size by palpation rounded. There was a large amount of placenta within the uterine cavity. DESCRIPTION OF PROCEDURE: The patient was brought into the operating room, placed in supine position. After adequate general anesthesia was obtained, was placed in dorsal lithotomy position, Electronically Signed By: BRANNON MCCABE MD 05/28/20 0728 PATIENT NAME: RODGER BLANK OPERATIVE REPORT DATE OF : 88 REPORT #: [id number] PHYSICIAN: BRANNON MCCABE MD PCP: PAULIE CLEARY MD REPORT IS CONFIDENTIAL AND NOT TO BE RELEASED WITHOUT AUTHORIZATION [facility] [address] [place] [id number] Signed prepped and draped in usual sterile fashion. The bladder was emptied with straight catheterization and then a weighted speculum placed in the vagina. The patient was given 20 units Pitocin and a liter of fluids to help with uterine contraction. The anterior lip of the cervix was grasped with Allis clamp and a sharp curette carefully introduced into the uterine cavity and gently pulled down, bringing down placental tissue into the os. This placental tissue was grasped with a ring forceps after removing the curette and gently pulled to attempt to remove the entire placenta. The great majority of the placenta did come out this way and appeared to come out whole, but after scraping carefully with a large curette placed in the uterine cavity in 360-degree fashion, several more smaller pieces were removed. This was continued until no further bleeding was noted and no additional tissue was removed in the normal empty field. The uterus could be noted throughout. At this point, all instruments were removed from the vagina and cervix and the uterus palpated, noted to be much smaller and more firm. The cervix and the vagina were again inspected and noted to have minimal bleeding. So at this point, it was decided to terminate the procedure. The patient tolerated the procedure well, went to recovery room in good condition. The sponge and instrument count correct at the end of the procedure. The placental tissue was sent to Pathology for identification. Brannon Mccabe MD MJB/MODL /[id number] cc: Paulie Cleary MD Copies: PAULIE CLEARY MD ~ Electronically Signed By: BRANNON MCCABE MD 05/28/20 0728 PATIENT NAME: RODGER BLANK OPERATIVE REPORT DATE OF : [birth year] REPORT #: [id number] PHYSICIAN: BRANNON MCCABE MD PCP: PAULIE CLEARY MD REPORT IS CONFIDENTIAL AND NOT TO BE RELEASED WITHOUT AUTHORIZATION
== END 2020-05-27 19:25 | disposition home or self-care (01) | DRG 770 ==
LOC: FBC 06:00
PROVIDERS: ADMIT General Practice
PROC: 10D17ZZ Extraction of Products of Conception, Retained, Via Natural or Artificial Opening (ICD-10-PCS; principal; 2020-05-27 15:13)
DX: O02.1 Missed abortion (principal); O03.4 Incomplete spontaneous abortion without complication; Z3A.12 12 weeks gestation of pregnancy
CPT/HCPCS: 00952; 36415; 85025; 86850; 86900; 86901; J0690; J1100; J1885; J2001; J2405; J2590; J2704; J3010; J7121

== ENCOUNTER 2021-07-25 09:30 | Inpatient (IN) | payer OTHER ==
--- NOTE | 2021-07-25 12:27 | PR ---
[facility] [address] [facility] [place], [place] [address] Signed Progress Notes IP Datetime Report Generated by CPN: 07/25/2021 12:27 PROGRESS NOTES: [id number] Impression: Normal Progression of Labor Procedures: Artificial ROM Plan: Continue Present Management; Anticipate Vaginal Delivery VITAL SIGNS: [id number] Vital Signs: Reviewed; Within Normal Limits EXAM: [id number] Dilatation: 7.0 Effacement: 80 Station: -2 Contractions: every 2-4 minutes MEMBRANES: [id number] Membranes Status: Ruptured Comments: Tolerating contractions well, will continue monitoring. FETUS A: [id number] FHR Baseline: 140 Variability: Moderate 6-25bpm Accelerations: 15X15 Presentation: Vertex FETUS B: [id number] Signing Physician: Raghu Alberto MD Copies: ~ *Electronically Signed* 07/25/21 1227 RAGHU ALBERTO MD PATIENT NAME: RODGER GARCIA PROGRESS NOTE DATE OF : 88 PHYSICIAN: RAGHU ALBERTO MD RPT #: [id number] REPORT IS CONFIDENTIAL AND NOT TO BE RELEASED WITHOUT AUTHORIZATION
--- NOTE | 2021-07-25 14:02 | PR ---
[facility] [address] [facility] [place], [place] [address] Signed Progress Notes IP Datetime Report Generated by CPN: 07/25/2021 14:02 PROGRESS NOTES: [id number] Impression: Normal Progression of Labor Procedures: Artificial ROM Plan: Continue Present Management; Anticipate Vaginal Delivery VITAL SIGNS: [id number] Vital Signs: Reviewed; Within Normal Limits EXAM: [id number] Dilatation: 9.0 Effacement: 90 Station: -2 Contractions: every 2-4 minutes MEMBRANES: [id number] Membranes Status: Ruptured Comments: Getting very uncomfortable, expect delivery soon FETUS A: [id number] FHR Baseline: 140 Variability: Moderate 6-25bpm Accelerations: 15X15 Presentation: Vertex FETUS B: [id number] Signing Physician: Raghu Alberto MD Copies: ~ *Electronically Signed* 07/25/21 1402 RAGHU ALBERTO MD PATIENT NAME: RODGER GARCIA PROGRESS NOTE DATE OF : 88 PHYSICIAN: RAGHU ALBERTO MD RPT #: [id number] REPORT IS CONFIDENTIAL AND NOT TO BE RELEASED WITHOUT AUTHORIZATION
--- NOTE | 2021-07-26 09:36 | PR ---
[facility] [address] [facility] [place], [place] [address] Signed PP Progress Notes Datetime Report Generated by CPN: 07/26/2021 09:36 SUBJECTIVE: [id number] Pain: Abnormal Pain Comments: c/o more pain in stitches today Nausea/Vomiting: Denies Vital Signs: [id number] Vital Signs: Reviewed; Within Normal Limits Notable Details: PP Hgb/Hct = 12.4/36.6 Abdomen/Uterus: Normal Lochia: Normal Vulva/Perineum: Normal Extremities: Normal Exam Comments: No redness or swelling, stitches intact without gap, minimal vaginal bleeding IMPRESSION/PLAN/PROCEDURES: [id number] Impression: Normal Progression Plan: Continue Present Management Procedures: None Progress Notes: Reassured , will continue with Krystyna-care, ice packs, etc. Signing Physician: Brannon Alberto MD Copies: ~ *Electronically Signed* 07/26/21935 BRANNON ALBERTO MD PATIENT NAME: RODGER GARCIA PROGRESS NOTE DATE OF : [birth year] PHYSICIAN: BRANNON ALBERTO MD RPT #: [id number] REPORT IS CONFIDENTIAL AND NOT TO BE RELEASED WITHOUT AUTHORIZATION
--- NOTE | 2021-07-27 12:55 | NUR ---
CONNECTED WITH PT, HER AND NEW BABY. THEY WERE QUIETLY RESTING WAITING FOR LAB TO COME AND DRAW. BABY IS HAVING BS PROBLEMS, PT CONCERNED AND WAS ABLE TO DISCUSS WITH THEM BOTH HOW THEY FELT. HAD PRAYER, GAVE BLESSING AND WILL CONTINUE TO FOLLOW.
--- NOTE | 2021-07-27 13:45 | PR ---
[facility] [address] [facility] [place], [place] [address] Signed PP Progress Notes Datetime Report Generated by CPN: 07/27/2021 13:45 SUBJECTIVE: [id number] Pain: Within Normal Limits Pain Comments: perineal pain improving Nausea/Vomiting: Denies Vital Signs: [id number] Vital Signs: Reviewed; Within Normal Limits Notable Details: PP Hgb/Hct = 12.4/36.6 Abdomen/Uterus: Normal Lochia: Normal Vulva/Perineum: Normal Extremities: Normal Exam Comments: No redness or swelling, stitches intact without gap, minimal vaginal bleeding IMPRESSION/PLAN/PROCEDURES: [id number] Impression: Normal Progression Plan: Discharge Procedures: None Progress Notes: Doing well, ready to go home, but baby needs to stay due to low blood sugars Signing Physician: Raghu Alberto MD Copies: ~ *Electronically Signed* 07/27/21 3366 RAGHU ALBERTO MD PATIENT NAME: RODGER GARCIA PROGRESS NOTE DATE OF : 88 PHYSICIAN: RAGHU ALBERTO MD RPT #: [id number] REPORT IS CONFIDENTIAL AND NOT TO BE RELEASED WITHOUT AUTHORIZATION
== END 2021-07-27 17:40 | disposition home or self-care (01) | DRG 807 ==
LOC: FBC 09:30
PROVIDERS: ADMIT General Practice; ATTEND General Practice
PROC: 10E0XZZ Delivery of Products of Conception, External Approach (ICD-10-PCS; principal; 2021-07-25)
PROC: 10907ZC Drainage of Amniotic Fluid, Therapeutic from Products of Conception, Via Natural or Artificial Opening (ICD-10-PCS; 2021-07-25)
PROC: 0HQ9XZZ Repair Perineum Skin, External Approach (ICD-10-PCS; 2021-07-25)
DX: O70.0 First degree perineal laceration during delivery (principal); Z37.0 Single live birth; O64.0XX0 Obstructed labor due to incomplete rotation of fetal head, not applicable or unspecified; Z20.822 Contact with and (suspected) exposure to COVID-19; Z3A.38 38 weeks gestation of pregnancy
CPT/HCPCS: 85027; A9270; J2550; J2590; J3010; U0003

== ENCOUNTER 2024-12-16 08:08 | Emergency (ER) | payer OTHER ==
[~2024-12-16] VITALS: Ht 162.6 cm; Wt 85.0 kg
[2024-12-16] MEDS ORDERED: HYDROCODON-ACE1 EA10 PO ×2 (08:20→10:01)
[2024-12-16] MEDS ORDERED: SULFAMETHOXAZO1 EAC1 PO (08:20)
[2024-12-16] MEDS ORDERED: TERBINAFINE HC250 MG PO (08:21)
[2024-12-16] MEDS ORDERED: CEFTRIAXONE SODIUM 2 GM in SODIUM CHLORIDE 0.9% 100 ML IV ONE (08:45)
[2024-12-16] MEDS ORDERED: CEFTRIAXONE SODIUM 2 GM VIAL ONE (08:54)
[2024-12-16 09:05] LABS: BASOPHILS 0.3 % (0-2); EOSINOPHILS 0.4 % (0-6); HEMATOCRIT 38.4 % (35.0-50.0); HEMOGLOBIN 13.8 g/dL (12.0-18.0); LYMPHOCYTES 8.2 % (24-44); MCH 30.7 (27-36); MCHC 35.9 g/dl (30-36); MCV 85.7 fl (81-99); MONOCYTES 6.5 % (0-12); NEUTROPHILS 84.6 % (39-80); PLATELET COUNT 288 K/uL (140-440); RBC 4.48 M/ul (4.3-5.7); RDW 12.6 (10.5-15.0)
[2024-12-16 09:22] LABS: ALBUMIN 3.3 g/dL (3.4-5.0); ALBUMIN/GLOBULIN RATIO 0.85 (1.1-2.4); ANION GAP 11.5 (7-21); BILIRUBIN, TOTAL 0.4 mg/dL (0.2-1.0); BUN/CREATININE RATIO 16.17 (6.0-28.6); CALCIUM 8.3 mg/dL (8.5-10.1); CREATININE, SERUM 0.68 mg/dL (0.55-1.02); POTASSIUM 3.5 mmol/L (3.5-5.1); PROTEIN, TOTAL 7.2 g/dL (6.4-8.2)
[2024-12-16] MEDS ORDERED: HYDROCODONE/APAP 10/325 1 TAB PO ONE (09:45)
[2024-12-16] MEDS ORDERED: ondansetron HCL 4 MG/2 ML VIAL IV ONE (09:45)
[2024-12-16] MEDS ORDERED: ONDANSETRON ODT4 MG PO (10:01)
[2024-12-16] MEDS ORDERED: CEPHALEXIN500 M1 PO (10:01)
[2024-12-16 10:10] VITALS: BP 104/74
== END 2024-12-16 10:10 | disposition home or self-care (01) ==
LOC: ED 08:08
PROVIDERS: Emergency Medicine
DX: L03.317 Cellulitis of buttock (principal)
CPT/HCPCS: 36415; 80053; 85025; 96374; 96375; 99283-25; A9270; J0696; J2405

== ENCOUNTER 2024-12-18 09:12 | Inpatient (IN) | payer OTHER ==
[~2024-12-18] VITALS: Ht 162.6 cm; Wt 86.0 kg
[~2024-12-18 09:12] MED LIST: CEPHALEXIN500 M1 PO; HYDROCODON-ACE1 EA10 PO; ONDANSETRON ODT4 MG PO; SULFAMETHOXAZO1 EAC1 PO; TERBINAFINE HC250 MG PO
--- OUTSIDE RECORDS SUMMARY | 2024-12-18 09:15 | XMS ---
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 Leyda has no Care Guidelines for this patient. [place] VISIT COUNT (12 MO.) [address] [facility] TOTAL 2 NOTE: Visits indicate total known visits. ED/[facility] VISIT TRACKING (12 MO.) 12/18/2024 09:[address] [facility] [place] TYPE: Emergency COMPLAINT: - SKIN PROBLEM 12/16/2024 08:08 [facility] [place] TYPE: Emergency COMPLAINT: - SKIN PROBLEM DIAGNOSES: - Cellulitis of buttock - Low back pain, unspecified INPATIENT VISIT TRACKING (12 MO.) No inpatient visits to display in this time frame [email or web address]
[2024-12-18] MEDS ORDERED: ondansetron HCL 4 MG/2 ML VIAL IV ONE (09:45)
[2024-12-18] MEDS ORDERED: MORPHINE SULFATE 4 MG/ML VIAL IV ONE ×2 (09:45→14:00)
[2024-12-18 10:08] LABS: BASOPHILS 0.2 % (0-2); EOSINOPHILS 0.2 % (0-6); LYMPHOCYTES 12.3 % (24-44); MCH 30.3 (27-36); MCHC 35.8 g/dl (30-36); MCV 84.7 fl (81-99); MONOCYTES 4.8 % (0-12); NEUTROPHILS 82.5 % (39-80); PLATELET COUNT 355 K/uL (140-440); RBC 4.61 M/ul (4.3-5.7); RDW 12.7 (10.5-15.0)
[2024-12-18 10:25] LABS: ALBUMIN 3.4 g/dL (3.4-5.0); ALBUMIN/GLOBULIN RATIO 0.83 (1.1-2.4); ANION GAP 14.1 (7-21); BILIRUBIN, TOTAL 0.4 mg/dL (0.2-1.0); BUN/CREATININE RATIO 17.64 (6.0-28.6); CALCIUM 8.8 mg/dL (8.5-10.1); CREATININE, SERUM 0.68 mg/dL (0.55-1.02); POTASSIUM 4.1 mmol/L (3.5-5.1); PROTEIN, TOTAL 7.5 g/dL (6.4-8.2)
[2024-12-18 10:31] LABS: LACTIC ACID, BLOOD 1.1 mmol/L (0.4-2.0)
[2024-12-18] MEDS ORDERED: CEFAZOLIN SODIUM 2 GM/20 ML SYR IV ONE (11:45)
--- NOTE | 2024-12-18 14:30 | NUR ---
REPORT RECEIVED FROM ED RN. PATIENT TRANSFERED TO MED SURG BED BY SELF WITH 1 PA STAND BY ASSIST. LUNG SOUNDS CTA, HEART SOUNDS RRGULAR. PULSES INTACT THROUGHOUT. BOWEL TONES ACTIVE X 4 QUADRANTS. PATIENT ORIENTED TO ROOM AND CALL LIGHT. IV SITE PATENT. DENIES ANY PAIN AT THIS TIME. CALL LIGHT WITHIN REACH.
[2024-12-18 14:44] VITALS: BP 112/74
[2024-12-18 14:45] VITALS: BP 112/74
--- NOTE | 2024-12-18 15:30 | NUR ---
MD IN ROOM WITH PATIENT AT THIS TIME.
[2024-12-18] MEDS ORDERED: LACTATED RINGER'S 1,000 ML IV ONE (15:45)
[2024-12-18] MEDS ORDERED: LACTATED RINGER'S 1,000 ML IV SCH (15:45)
[2024-12-18] MEDS ORDERED: KETOROLAC TROMETHAMINE 30 MG/ML VIAL IV PRN (15:45)
[2024-12-18] MEDS ORDERED: ondansetron HCL 4 MG/2 ML VIAL IV PRN (15:45)
[2024-12-18] MEDS ORDERED: MORPHINE SULFATE 10 MG/ML VIAL IV PRN (15:45)
--- NOTE | 2024-12-18 16:09 | NUR ---
IV BOLUS STARTED PER ORDERS.
[2024-12-18] MEDS ORDERED: COLLAGEN 15001 EACH PO (16:11)
[2024-12-18] MEDS ORDERED: WOMEN MULTIVIT1 EACH PO (16:14)
--- NOTE | 2024-12-18 16:14 | NUR ---
MED REC COMPLETE
--- NOTE | 2024-12-18 17:12 | NUR ---
PATIENT C/O PAIN. PRN ADMINSTERED.
--- NOTE | 2024-12-18 18:04 | NUR ---
PATIENT RESTING IN BED AT THIS TIME. LAYING ON LEFT SIDE. DENIES ANY NEEDS AT THIS TIME. PATIENT HAS HAD PRESURGICAL WIPE DOWN. CONSENT SIGNED. REDNESSS TO BUTTOCKS REMAINS WITHIN MARGINS. NO FURTHER NEEDS CALL LIGHT WITHIN REACH.
[2024-12-18 18:43] VITALS: BP 107/61
--- NOTE | 2024-12-18 20:12 | NUR ---
Received report. Pain 02/14 currently, though denies pain medication as she recently received some. Requests information about time of upcoming surgery, assured will update with more information. Call light in reach
[2024-12-18] MEDS ORDERED: FAMOTIDINE 20 MG/ 2 ML VIAL IV SCH (21:00)
--- NOTE | 2024-12-18 21:27 | NUR ---
Pt taken to OR for I&D. Declines family notification.
[2024-12-18] MEDS ORDERED: BUPIVACAINE 0.75% IN DEXTROSE 2 ML AMP ONE (21:54)
[2024-12-18] MEDS ORDERED: propofoL 200 MG/20 ML VIAL ONE ×2 (21:54)
[2024-12-18] MEDS ORDERED: fentaNYL citrate 100 MCG/2 ML VIAL ONE (21:54)
[2024-12-18] MEDS ORDERED: MIDAZOLAM HCL 2 MG/2 ML VIAL ONE (21:54)
[2024-12-18] MEDS ORDERED: ondansetron HCL 4 MG/2 ML VIAL ONE (21:54)
[2024-12-18] MEDS ORDERED: CEFAZOLIN SODIUM 2 GM/20 ML SYR IV SCH (22:00)
[2024-12-18] MEDS ORDERED: metroNIDAZOLE/SODIUM CHLORIDE 500 MG/100 ML PIGGYBACK IV SCH (22:00)
[2024-12-18] MEDS ORDERED: CEFAZOLIN SOD 1,000 MG/10 ML VIAL ONE ×2 (22:04→22:09)
--- NOTE | 2024-12-18 22:48 | NUR ---
12/18/248 Dedra Adames 2236- PT ARRIVES TO PACU, SEMI CRUMP POSITION, O2 AT 6L PER MASK, BREATHING EVEN AND NON LABORED. LR INFUSING TO RAC IV. ABD SOFT, NON DISTENDED, DRESSING TO R BUTTOCK IN PLACE. ALL MONITORS IN PLACE. 2243- PT MOVED TO ROOM AIR AT THIS TIME, WAKES EASILY TO VERBAL STIMULI. DENIES PAIN AND NAUSEA. REPORTS TOES ON LEFT FOOT FEEL A LITTLE NUMB BUT ABLE TO MOVE BOTH FEET. WILL CONTINUE TO MONITOR.
[2024-12-18 23:15] VITALS: BP 117/63
--- NOTE | 2024-12-18 23:16 | NUR ---
PT ARRIVED AFTER I&D. RECEIVED REPORT, VITALS TAKEN. DENIES PAIN CURRENTLY, SOME NUMBNESS OF TRUNK AND FEET. CALL LIGHT IN REACH
[2024-12-18] MEDS ORDERED: ACETAMINOPHEN 500 MG TAB PO PRN (23:45)
[2024-12-18] MEDS ORDERED: OXYCODONE HCL 5 MG TAB PO PRN (23:45)
[2024-12-18] MEDS ORDERED: IBUPROFEN 600 MG TAB PO PRN (23:45)
--- NOTE | 2024-12-18 23:49 | NUR ---
4mg prn zofran given-see emar per request of primary rn. pt in bed resting, awake. denies needs or concerns. call light in reach.
[2024-12-19] VITALS (10 sets, daily range): BP systolic 94–111; BP diastolic 53–72
--- NOTE | 2024-12-19 00:01 | NUR ---
Post-op vitals: hour 1 taken. Pt reports numbness unchanged. Nausea improved by zofran. Given 2200 IV flagyl dose late, as pt off floor for I&D at time due. Call light in reach, no other needs identified presently
--- NOTE | 2024-12-19 01:00 | NUR ---
POST-OP VITALS. PT REPORTS SOME MILD DISCOMFORT, DECLINES OXYCODONE AND OTHER MEDS FOR NOW. POSITIONED FOR PAIN RELEIVE WITH PILLOWS AND WARM BLANKET. CALL LIGHT IN REACH
--- NOTE | 2024-12-19 02:30 | NUR ---
Completed post-op vitals and repositioned pt. Given IV toradol for pain of incision, as well as warm blankets. Pt c/o some discomfort of IV site. No phlebitis and flushing well, may be irritation from hub. Added gauze cushion. Call light in reach
--- NOTE | 2024-12-19 04:51 | NUR ---
PT ASLEEP WITH NOTED RISE AND FALL OF CHEST. CALL LIGHT IN REACH
--- NOTE | 2024-12-19 05:19 | NUR ---
Pt received I&D of perirectal cellulitis. Soft BP following, not symptomatic. A&Ox4, able to communicate needs. Endorses sacral pain, declines opioid medications unless absolutely necessary, none given on shift. Moves stand by assist. Perirectal surgical site with packed gauze, and abdominal pad in gluteal fold with moderate bright-red drainage. No changes noted to red drainage after 4 hours on reassessment. Receiving antibiotics. Possible dc home today. Call light in reach
--- NOTE | 2024-12-19 06:42 | NUR ---
Given IV morphine for 8/10 pain, as well as reapplied heat. Given morning meds. [facility]
--- NOTE | 2024-12-19 07:40 | NUR ---
REPORT RECEIVED FROM ALARM SIGNALER RN. PATIENT RESTING IN BED. IVF INFUSING WNL. DENEIS ANY NEEDS AT THIS TIME. CALL LIGHT WITHIN REACH.
[2024-12-19] MEDS ORDERED: metroNIDAZOLE 250 MG TAB PO SCH (08:00)
--- NOTE | 2024-12-19 08:18 | NUR ---
PATIENT IN CHAIR AT THIS TIME. ROUTE DELIVERY DRIVER ASSISTED PATIENT TO CHAIR. FAMILY IN ROOM AT THIS TIME. CALL LIGHT WITHIN REACH, NO FURTHER NEEDS AT THIS TIME.
[2024-12-19] MEDS ORDERED: FAMOTIDINE 20 MG TAB PO SCH (09:00)
[2024-12-19] MEDS ORDERED: CIPROFLOXACIN 500 MG TAB PO SCH (09:00)
--- NOTE | 2024-12-19 09:10 | NUR ---
PATIENT GIVEN AM MEDICATIONS. PATIENT C/O PAIN 03/17 PRN ADMINSTERED. PATIENT ASSISTED TO BATHROOM VIA 1 PA STAND BY FOR LINE AND TUBE MANAGMENT. NEW ABD PAD APPLIED TO BUTTOCKS AFTER VOID IN TOILET. PATIENT WITH SMALL AMOUNT OF DRAINAGE NOTED SEROSANG. REDNESS TO BUTTOCKS REMAINS WITHIN MARGINS. IV SITE PATENT, IVF INSUSING WNL. LUNGS CTA, BOWEL TONES ACITVE X 4 QUADRANTS. PATIENT REQUESTING TO GO BACK INTO BED. ASSISTED BACK TO BED, LAYING ON STOMACH AT THIS TIME. NO FURTHER NEEDS CALL LIGHT WITHIN ARJUN.
[2024-12-19] MEDS ORDERED: HYDROmorphone HCL 4 MG TAB PO PRN (09:45)
--- NOTE | 2024-12-19 10:30 | NUR ---
Spoke with Casey. She lives in a home with 0 steps. SHe lives with her spouse and 3 children. Dhe drives and does not use any DME. She has used a sitz bath in the past and discussed this with her. She denies financial issues or safety concerns. Plans on dc to home when cleared medically.
--- NOTE | 2024-12-19 10:30 | NUR ---
IN TO ROUND ON PATIENT. DENIES ANY NEEDS. RESTING ON STOMACH AT THIS TIME.
--- NOTE | 2024-12-19 11:37 | NUR ---
SBA TO BATHROOM. PATIENT RETURNED TO BED ONCE DONE.
--- NOTE | 2024-12-19 11:50 | NUR ---
UR CLINICAL REVIEW: [facility], MEETS INPT FOR CELLULITIS IV ANTIBIOTICS, SURGICAL I&D, WOUND CARE WITH PACKING [facility] INPT 12/18/2024 @ 1317 ORDER MATCHES REG AUTH PENDING, CLINICALS SENT TO [facility] FOR REVIEW. DC TO HOME WHEN MEDICALLY STABLE 12/21/24
--- NOTE | 2024-12-19 12:00 | NUR ---
PATIENT RESTING IN BED. C/O PAIN 04/16. PRN ADMINSTERED. IV SITE REMAINS PATENT. PATIENT EATING LUNCH AT THIS TIME.
--- NOTE | 2024-12-19 12:35 | NUR ---
PATIENT ASSISTED FROM BED TO BATHROOM. SITZ BATH COMPLETED. PATIENT TOLLERATED WELL.
--- NOTE | 2024-12-19 13:05 | NUR ---
PATIENT CONTINUES TO C/O PAIN. PRN ADMINSTERED. NO FURTHER NEEDS CALL LIGHT WITHIN REACH.
--- NOTE | 2024-12-19 14:20 | NUR ---
IN TO ROUND ON PATIENT. DENIES ANY NEEDS AT THIS TIME. CALL LIGHT WITHIN REACH.
--- NOTE | 2024-12-19 15:20 | NUR ---
RESTING IN BED. FAMILY AT BEDSIDE. PATIENT REPORTS HER PAIN LEVEL IS STILL HIGH. ABD PAD TO BUTTOCKS REMAINS IN PLACE WITH SEROSANG DRAINAGE NOTED. REDNESS TO BUTTOCKS HAS DECREASED. LOOP DRAIN IN PLACE AND VISABLE. PACKING REMAINS IN PLACE AT THIS TIME. PATIENT LATING ON SIDE IN BED. CALL LIGHT WITHIN REACH.
--- NOTE | 2024-12-19 16:20 | NUR ---
PATIENT AMBULATED TO BATHROOM. VOID IN TOILET. C/O PAIN 04/16. PRN ADMINSTERED. PATIENT BACK INTO BED. NO FURTHER NEEDS. CALL LIGHT WITHIN REACH.
--- NOTE | 2024-12-19 17:10 | NUR ---
MD ON UNIT. RN PRESENT WITH MD WHILE MD REMOVED PACKING FROM PATIENT SURGICAL INCISION. DRAINS REMAIN IN PLACE. PATIENT TOLLERATED WELL. NO FURTHER NEEDS. ABX ADMINSTERED. PATIENT EATING DINNER AT THIS TIME. CALL LIGHT WITHIN REACH.
--- NOTE | 2024-12-19 18:27 | NUR ---
PATIENT RESTING IN BED WITH EYES CLOSED. RESPIRATIONS EVEN AND UNLABORED. CALL LIGHT WITHIN REACH.
--- NOTE | 2024-12-19 19:42 | NUR ---
RECEIVED REPORT. CHANGED IV FLUIDS AND HELPED REPOSITION PT FOR PAIN RELIEF. PT REQUESTS DRESSING CHANGE, WILL PERFORM AFTER SITZ BATH. REFRESHED WATER. NO OTHER NEEDS AT THIS TIME
--- NOTE | 2024-12-19 22:13 | NUR ---
ASSESSMENT, NIGHTTIME MEDS ADMINISTERED, INCLUDING DILAUDID 8MG. SITZ BATH INITIATED FOR 15 MINUTES, AND REDRESSED WOUND WITH ABD PAD. PT RESTING IN BED, CALL LIGHT IN REACH
--- NOTE | 2024-12-20 00:30 | NUR ---
PT SLEEPING WITH OBSERVED RISE AND FALL OF CHEST. CALL LIGHT IN REACH
--- NOTE | 2024-12-20 02:24 | NUR ---
ASSISTED PT TO RESTROOM AND APPLIED NEW ABD TO WOUND. GAVE DILAUDID 8MG AND TYLENOL FOR PAIN 03/17. CALL LIGHT IN REACH
--- NOTE | 2024-12-20 03:19 | NUR ---
PT SLEEPING WITH OBSERVED RISE AND FALL OF CHEST. CALL LIGHT IN REACH
[2024-12-20 06:23] VITALS: BP 103/64
--- NOTE | 2024-12-20 06:26 | NUR ---
WEATHERIZATION DIRECTOR OBTAINED VITALS AND I&O. PT STATES NO NEEDS AT THIS TIME. CALL LIGHT WITHIN REACH.
--- NOTE | 2024-12-20 07:20 | NUR ---
REPORT RECEIVED FROM FROM PEDIATRIC DIETICIAN RN. PATIENT RESTING IN BED LAYING ON HER RIGHT SIDE. IV FLUIDS INFUSING WITH NO ISSUES OR CONCERNS. IV SITE PATENT. PATIENT DENIES ANY NEEDS AT THIS TIME. CALL LIGHT WITHIN REACH.
--- NOTE | 2024-12-20 08:55 | NUR ---
Board has been updated and call light has been placed within reach
--- NOTE | 2024-12-20 09:15 | NUR ---
PATIENT RESTING IN BED EATING BREAKFAST. AM MEDICATIONS ADMINSTERED. PATIENT ASSISTED TO BATHROOM WITH 1 PA STAND BY ASSIST. REDNESS TO BUTTOCK IS SIGNIFIANTLY LESS. LOOP DRAINS REMAINS IN PLACE. NOTED SMALL AMOUNT OF DRAINAGE TO ABD PAD. ABD PAD CHANGED. PATIENT RRPORTED PAIN PRN ADMINSTERED. IV SITE REMAINS PATENT AND WNL. PATIENT DENIES ANY FURTHER NEEDS. BACK IN BED PER PATIENT PREFERENCE. LAYING ON SIDE. CALL LIGHT WITHIN REACH.
[2024-12-20 09:55] VITALS: BP 104/65
--- NOTE | 2024-12-20 10:48 | NUR ---
PATIENT RESTING IN BED AT THIS TIME. DENIES ANY NEEDS. CALL LIGHT WITHIN REACH.
[2024-12-20] MEDS ORDERED: METRONIDAZOLE250 MG PO (11:18)
[2024-12-20] MEDS ORDERED: IBUPROFEN600 MG PO (11:18)
[2024-12-20] MEDS ORDERED: CIPROFLOXACIN500 MG PO (11:18)
[2024-12-20] MEDS ORDERED: ACETAMINOPHEN500 MG PO (11:19)
[2024-12-20] MEDS ORDERED: HYDROMORPHONE HC4 MG PO (11:19)
--- NOTE | 2024-12-20 11:29 | HP ---
[facility] [address] [place], [place] [address] Signed ADMISSION DATE: 12/18/2024 REASON FOR ADMISSION: right gluteal cellulitis, probable abscess. HISTORY OF PRESENT ILLNESS: This 34-year-old white woman is known to me from the past having undergone cholecystectomy. She presented to the emergency room at approximately 9:00 a.m. with pain and erythema of the right buttock area. She was evaluated by Dr. Veto Hadley who ordered a CT scan of the pelvis confirming fat stranding along the right gluteal cleft measuring 8 x 6.9 cm without apparent organized abscess. She was considered to have a gluteal cellulitis though she had no known inciting cause, specifically puncture injury. She had been seen in an urgent care setting in the preceding week and given pain medication and oral antibiotics. I was called and agreed to direct admission for further evaluation and care. The patient has had no similar problem in the past. She knows of no specific injury that may have led to this. She does not smoke or drink alcohol or have illicit drug use. SURGICAL HISTORY: Includes cholecystectomy and D and C in the past. MEDICATIONS: Recent medicines have included cephalexin, hydrocodone and Zofran. SOCIAL HISTORY: She is accompanied by her and three young children. 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 REVIEW OF SYSTEMS: She denies any shortness of breath or chest pain. Her pain is exquisite and worsening. PHYSICAL EXAMINATION: GENERAL: Pleasant white woman who does not look systemically toxic at this time. VITAL SIGNS: Height 5 feet 4 inches, weight 86 kg. BMI 32.5. CHEST: Shows normal respiratory excursion. Pulse is regular. EXTREMITIES: In the lateral position, significant erythema is noted in the right Electronically Signed By: JOSE GALAN MD 12/20/24 1129 PATIENT NAME: RODGER GARCIA HISTORY AND PHYSICAL DATE OF : 88 REPORT #: [id number] PHYSICIAN: JOSE GALAN MD PCP: HARRIETT CIFUENTES PA-C REPORT IS CONFIDENTIAL AND NOT TO BE RELEASED WITHOUT AUTHORIZATION [facility] [address] [place], [place] [address] Signed buttock and point tenderness and probable fluctuance actually. Anal exam was not undertaken. ASSESSMENT: The patient has an abscess that is not simply cellulitis at least on clinical exam. CT scan is notorious for not recognizing abscess in this setting until it is very well organized. I would recommend exam under anesthesia, incision and probable drainage of fluid. A counter incision will be made and a loop drain applied. In the meantime, antibiotic Ancef and Flagyl will be administered. Pain control initiated and IV fluids given. She just ate some crackers and her plan for operation this evening will be scheduled accordingly. MD TYLER Treviño/SOREN /[id number] cc: KAYLEN Metcalf Dr [facility] physician Copies: HARRIETT CIFUENTES PA-C ~ Electronically Signed By: JOSE GALAN MD 12/20/24 1129 PATIENT NAME: RODGER GARCIA HISTORY AND PHYSICAL DATE OF : [birth year] REPORT #: [id number] PHYSICIAN: JOSE GALAN MD PCP: HARRIETT CIFUENTES PA-C REPORT IS CONFIDENTIAL AND NOT TO BE RELEASED WITHOUT AUTHORIZATION
--- NOTE | 2024-12-20 11:29 | OR ---
[facility] [address] [place], [place] [address] Signed DATE OF OPERATION: 12/18/2024 SURGEON: Jose Galan MD PREOPERATIVE DIAGNOSIS: Right gluteal abscess, probable right perirectal abscess. POSTOPERATIVE DIAGNOSES: 1. Right posterior lateral perirectal abscess (large). 2. Extension of perirectal abscess to right gluteal area. PROCEDURES: 1. Exam under anesthesia. 2. Drainage of complex perirectal abscess with placement of seton. 3. Drainage of right gluteal abscess with yellow vessel seton drainage. ANESTHESIA: Saddle block with IV sedation, Artemio Zamora CRNA. INDICATION: This 34-year-old white woman who has had over a week of increasing right gluteal pain. She was seen as an outpatient with tenderness in the right gluteal area and treated with antibiotics for what was thought to be right gluteal cellulitis. She returned to the emergency room today with severe right gluteal pain, erythema and exquisite tenderness and evaluated by Dr. Veto Hadley, emergency room physician. We entered needle crease and perirectal area showed mild erythema and the gluteal area showed induration. A CT scan was performed, which showed "no fluid." I admitted her directly upon that history and examination shows her quite obviously to have a perirectal abscess, most likely with gluteal extension. She has been fluid resuscitated, given intravenous antibiotics and now to undergo incision and drainage. She understands the risk of bleeding, infection, and other unforeseen complications including possible development of a eqqoonm-tf-afk over time. Understanding that, she wished to proceed. FINDINGS: Indeed the right gluteal area did have a LARGE ABSCESS CAVITY of the right gluteal area and a large perirectal abscess also. The origin of the abscess was quite obviously a sizable right posterolateral perirectal abscess. That abscess was drained as well and a yellow vessel loop seton was placed. The two areas in continuity were additionally drained with a yellow vessel loop laterally. Complete removal of the purulent material was noted. It measured probably Electronically Signed By: JOSE GALAN MD 12/20/24 1129 PATIENT NAME: RODGER GARCIA OPERATIVE REPORT DATE OF : [birth year] REPORT #: [id number] PHYSICIAN: JOSE GALAN MD PCP: KAREN MOFFETT PA-C REPORT IS CONFIDENTIAL AND NOT TO BE RELEASED WITHOUT AUTHORIZATION [facility] [address] [place] [id number] Signed 250 mL in aggregate. Gram stain and cultures were obtained. DESCRIPTION OF PROCEDURE: The patient was brought to the operating room after undergoing saddle block anesthesia in the preanesthesia area. She was placed in prone oz-knife position. The buttocks were taped apart after intravenous sedation was induced. An additional dose of Ancef was given in the operating room. The buttocks were taped apart showing an area of subtle, but real pointing without induration in the right posterolateral anal area. The dominant tender area in the right gluteus was erythematous, dense and firm and was notable as well. The entire area was prepared with a Betadine based solution. An incision was made in the right perianal area approximately 4 cm from the anal verge with a 15 blade. Egress of copious amounts of purulent material was noted. Photographs were taken and gram stain and cultures were obtained. The probe in the perirectal space with a hemostat showed a quite obviously to be in continuity with the anal canal consistent with perirectal abscess of a typical type. The hemostat was insinuated into the path of least resistance to a crypt. A yellow vessel loop was passed through this and tied in a knot. Going from this initial incision in the superior lateral position, an abscess was encountered in the gluteal space approximately 8-10 cm away. This was an impressively large extension of the perirectal abscess laterally. A counter incision was made at the limit of the abscess cavity in the yellow vessel loop passed between this area as well. Hemostat was used to break up loculations between both areas. The space was in continuity with the anal canal at this point. Copious irrigation with sterile saline solution allowed for clearance of all of the purulent material. Care was taken to probe all areas of break down loculations as appropriate. As there was oozing (as is typical) quarter-inch Nu Gauze was packed into the perirectal area and a small end of this into the lateral gluteal site as well. A peripad was applied. She was returned to supine position ultimately allowed to emerge from sedation and taken to recovery room in good condition. Blood loss was less than 20 mL in aggregate. Sponge, needle, and instrument counts reported as correct x3. MD TYLER Treviño/SANTAL /[id number] cc: Dr. Veto Hadley Electronically Signed By: JOSE GALAN MD 12/20/24 1129 PATIENT NAME: RADHARODGER OPERATIVE REPORT DATE OF : [birth year] REPORT #: [id number] PHYSICIAN: JOSE GALAN MD PCP: KAREN MOFFETT PA-C REPORT IS CONFIDENTIAL AND NOT TO BE RELEASED WITHOUT AUTHORIZATION [facility] [address] [place], [place] [address] Signed [facility] Karen Moffett PA-C Copies: KAREN MOFFETT PA-C ~ Electronically Signed By: JOSE GALAN MD 12/20/24 1129 PATIENT NAME: RODGER GARCIA OPERATIVE REPORT DATE OF : [birth year] REPORT #: [id number] PHYSICIAN: JOSE GALAN MD PCP: KAREN MOFFETT PA-C REPORT IS CONFIDENTIAL AND NOT TO BE RELEASED WITHOUT AUTHORIZATION
--- NOTE | 2024-12-20 11:30 | NUR ---
PATIENT ASSISTED TO BATHROOM WITH 1 PA ASSIST AND FWW. PATIENT COMPLETED SITZ BATH. ASSISTED BACK TO BED. DENIES ANY FURTHER NEEDS. CALL LIGHT WITHIN REACH.
--- NOTE | 2024-12-20 12:37 | NUR ---
SCHEDULED ABX ADMINSTERED. PATIENT RESTING IN BED. NO NEEDS AT THIS TIME. CALL LIGHT WITHIN REACH.
--- NOTE | 2024-12-20 13:26 | NUR ---
patient c/o pain prn admisntered. scheduled abx adminstered. patient with no further needs. call light within reach.
[2024-12-20 13:52] VITALS: BP 101/59
--- NOTE | 2024-12-20 13:52 | NUR ---
PATIENT IN BED AT THIS TIME. TRACK SUPERINTENDENT CHARTED VITALS AND I&O'S. CALL LIGHT WITHIN REACH, NO FURTHER NEEDS AT THIS TIME.
--- NOTE | 2024-12-20 15:53 | NUR ---
PATIENT UP TO BATHROOM. PARTICIPATING IN SITZ BATH. IV SITE REMOVED WNL PRIOR TO DISCHARGE PLANNED AT 1630. PATIENT WITH NO OTHER NEEDS AT THIS TIME. CALL LIGHT WITHIN REACH.
[2024-12-20 16:23] VITALS: BP 112/85
--- NOTE | 2024-12-21 07:47 | DS ---
[facility] [address] [place], [place] [address] Signed ADMISSION DATE: 12/18/2024 DISCHARGE DATE: 12/20/2024 REASON FOR ADMISSION: Right gluteal area abscess and right perirectal abscess. HISTORY OF PRESENT ILLNESS: This 34-year-old white woman is known to me from the past having undergone cholecystectomy. She presented to the emergency room with pain and erythema of the right buttock and was evaluated by Dr. Veto Hadley. CT scan showed inflammatory stranding along the right internatal cleft measuring 8 x 6.9 cm without apparent organized abscess. She is considered to have "gluteal cellulitis." The patient had been seen as an outpatient in an urgent care setting previously and prescribed antibiotics for similar symptoms of pain. She has had no prior findings of the same in the past and no known gluteal puncture injury. She is admitted for further evaluation and care. PERTINENT PHYSICAL EXAMINATION: GENERAL: Showed a pleasant white woman who was not systemically toxic, but was quite markedly tender. Her BMI is 32.5. CHEST: Clear. HEART: Regular without murmur. EXTREMITIES: Erythema was noted in the right buttock area with point tenderness and probable fluctuance. HOSPITAL COURSE: The patient was considered most likely to have a perirectal abscess with extensive extension to the gluteus. She underwent exam under anesthesia on December 18, 2024, where she was confirmed to have right posterolateral perirectal abscess which was quite extensive and it extending to the right buttock area. At least 250 mL of purulent material was drained. Gram stain and cultures were obtained. Two setons were placed, one seton to the anal canal to the perirectal abscess and another loop type drain from the drainage site of the perirectal abscess laterally to the lateral right buttock. Packing of the wound for hemostasis was undertaken. The following day, the wound packing was removed which was quite uncomfortable. She was Electronically Signed By: JOSE GALAN MD 12/21/24 0747 PATIENT NAME: RODGER GARCIA DISCHARGE SUMMARY DATE OF : [birth year] REPORT #: [id number] PHYSICIAN: JOSE GALAN MD PCP: HARRIETT CIFUENTES PA-C REPORT IS CONFIDENTIAL AND NOT TO BE RELEASED WITHOUT AUTHORIZATION [facility] [address] [place], [place] [address] Signed initiated on sitz baths. She had progressive improvement. By the day of discharge, she is tolerating pain much better, having great benefit from sitz baths and oral analgesics. The yellow vessel loops remain in place. The patient understands she may have development of chronic fistula in ANO (less than 10% of the time). I will plan to see her back in the office in two weeks and remove one or more of the yellow vessel loop drains. DISCHARGE MEDICATIONS: Will include 1. Cipro 500 mg one tablet p.o. b.i.d., #10. 2. Flagyl 250 mg one tablet p.o. t.i.d., #15. 3. Ibuprofen 600 mg p.o. q.6 hours as needed for pain, #60, refill two. 4. Dilaudid 4 mg tablets 1-2 p.o. q.4 hours p.r.n. severe pain, #12. 5. Tylenol 500 mg two tablets p.o. q.6 hours as needed for pain, #90, refill two. She will continue with usual medications includin. Terbinafine 250 mg p.o. daily. 2. Zofran 4 mg as needed for nausea. 3. Collagen supplement and multivitamin. She will hold off on taking Bactrim, cephalexin and hydrocodone as previously prescribed. DISCHARGE DIAGNOSES: 1. Complex right posterolateral perirectal abscess with extension to the right buttock, status post incision and drainage and debridement December 18, 2024. 2. History of cholecystectomy. MD TYLER Treviño/SANTAL /[id number] cc: KAYLEN Metcalf Dr. Electronically Signed By: JOSE GALAN MD 12/21/24 0747 PATIENT NAME: RODGER GARCIA DISCHARGE SUMMARY DATE OF : [birth year] REPORT #: [id number] PHYSICIAN: JOSE GALAN MD PCP: HARRIETT CIFUENTES PA-C REPORT IS CONFIDENTIAL AND NOT TO BE RELEASED WITHOUT AUTHORIZATION [address] [place], [place] [address] Signed Copies: HARRIETT CIFUENTES PA-C ~ Electronically Signed By: JOSE GALAN MD 12/21/24 0747 PATIENT NAME: RODGER GARCIA DISCHARGE SUMMARY DATE OF : [birth year] REPORT #: [id number] PHYSICIAN: JOSE GALAN MD PCP: HARRIETT CIFUENTES PA-C REPORT IS CONFIDENTIAL AND NOT TO BE RELEASED WITHOUT AUTHORIZATION
== END 2024-12-20 16:29 | disposition home or self-care (01) | DRG 394 ==
LOC: ED 09:12 → MS 13:47
PROVIDERS: Emergency Medicine; ADMIT Surgery; ATTEND Surgery
PROC: 0Y9000Z Drainage of Right Buttock with Drainage Device, Open Approach (ICD-10-PCS; 2024-12-18)
PROC: 0D9P70Z Drainage of Rectum with Drainage Device, Via Natural or Artificial Opening (ICD-10-PCS; principal; 2024-12-18 22:06)
DX: K61.1 Rectal abscess (principal); L02.31 Cutaneous abscess of buttock; L03.317 Cellulitis of buttock; Z90.49 Acquired absence of other specified parts of digestive tract; Z98.890 Other specified postprocedural states; Z79.899 Other long term (current) drug therapy
CPT/HCPCS: 00400; 36415; 72193; 80053; 83605; 84703; 85025; 86140; 87205; A9270; J0690; J1885; J2250; J2270; J2405; J2704; J3010; J7121; Q9967

== ENCOUNTER 2025-01-13 10:02 | Day surgery (SDC) | payer OTHER ==
[~2025-01-13] VITALS: Ht 162.6 cm; Wt 86.0 kg
[~2025-01-13 10:02] MED LIST changes: +ACETAMINOPHEN500 MG PO; +CEFAZOLIN SODIUM 2 GM/20 ML SYR IV SCH; +CIPROFLOXACIN500 MG PO; +COLLAGEN 15001 EACH PO; +HYDROMORPHONE HC4 MG PO; +IBLOOD GLUCOSE TEST STRIP 1 EA TEST VI PRN; +IBUPROFEN600 MG PO; +LACTATED RINGER'S 1,000 ML IV SCH; +LIDOCAINE HCL 1% 5 ML SDV INJ ONE; +METRONIDAZOLE250 MG PO; +WOMEN MULTIVIT1 EACH PO; +metroNIDAZOLE/SODIUM CHLORIDE 500 MG/100 ML PIGGYBACK IV SCH
[2025-01-13 10:59] VITALS: BP 99/67
[2025-01-13] MEDS ORDERED: VITAMIN D350 MC3 PO (10:59)
[2025-01-13] MEDS ORDERED: DEXAMETHASONE SOD PHOS 4 MG/ML VIAL ONE (11:12)
[2025-01-13] MEDS ORDERED: ondansetron HCL 4 MG/2 ML VIAL ONE (11:12)
[2025-01-13] MEDS ORDERED: propofoL 200 MG/20 ML VIAL ONE (11:12)
[2025-01-13] MEDS ORDERED: LACTATED RINGER'S 1,000 ML IV ONE (11:12)
[2025-01-13] MEDS ORDERED: FAMOTIDINE 20 MG/ 2 ML VIAL ONE (11:12)
[2025-01-13] MEDS ORDERED: MIDAZOLAM HCL 2 MG/2 ML VIAL ONE (11:12)
[2025-01-13] MEDS ORDERED: KETOROLAC TROMETHAMINE 30 MG/ML VIAL ONE (11:12)
[2025-01-13] MEDS ORDERED: fentaNYL citrate 100 MCG/2 ML VIAL ONE (11:12)
[2025-01-13] MEDS ORDERED: METOCLOPRAMIDE HCL 10 MG/2 ML SDV ONE (11:12)
[2025-01-13] MEDS ORDERED: LIDOCAINE HCL 2% 5 ML SDV ONE (11:13)
[2025-01-13] MEDS ORDERED: ACETAMINOPHEN500 MG PO (13:12)
[2025-01-13] MEDS ORDERED: OXYCODON-ACETA1 EAC2 PO (13:12)
[2025-01-13] MEDS ORDERED: PROCHLORPERAZINE EDISYLATE 10 MG/2 ML VIAL IV PRN (13:15)
[2025-01-13] MEDS ORDERED: NALOXONE HCL 0.4 MG SYR IV PRN ×2 (13:15)
[2025-01-13] MEDS ORDERED: LACTATED RINGER'S 1,000 ML IV SCH (13:15)
[2025-01-13] MEDS ORDERED: IBLOOD GLUCOSE TEST STRIP 1 EA TEST VI PRN (13:15)
[2025-01-13] MEDS ORDERED: ondansetron HCL 4 MG/2 ML VIAL IV PRN (13:15)
[2025-01-13] MEDS ORDERED: MORPHINE SULFATE 10 MG/ML VIAL IV PRN (13:15)
[2025-01-13] MEDS ORDERED: OXYCODONE/APAP 7.5/325 TAB PO PRN (13:15)
[2025-01-13] MEDS ORDERED: droPERidol 5 MG/2 ML VIAL IV PRN (13:15)
[2025-01-13] MEDS ORDERED: fentaNYL citrate 50 MCG/ML SDV IV PRN (13:15)
[2025-01-13] MEDS ORDERED: ACETAMINOPHEN 500 MG TAB PO PRN (13:15)
[2025-01-13] MEDS ORDERED: METOCLOPRAMIDE HCL 10 MG/2 ML SDV IV PRN (13:15)
--- NOTE | 2025-01-13 13:22 | NUR ---
01/13/25 1322 Sheets,Irina 1256 PT ARRIVES TO PACU WITH ORAL AIRWAY IN PLACE AND RESP EVEN AND UNLABORED. VSS. RESP EVEN AND UNLABORED. 1306 PT WAKES TO TACTILE STIMULI AND ORAL AIRWAY AND MASK REMOVED. PT REORIENTED TO PACU, PT DENIES NAUSEA AND PAIN. 1315 MD AT BEDSIDE AND PT WAKES EAISLY. MD TALKING TO PT. PT ANBLE TO ROLL TO SIDE WITHOUT HELP AND REPORT "I CAN FEEL IT SOME." PT ROLLED TO SIDE AND PILLOWS PLACED FOR COMFORT, PT RESTING WITH EYES CLOSED.
[2025-01-13 13:43] VITALS: BP 101/55
--- NOTE | 2025-01-13 14:04 | NUR ---
1345: PATIENT BACK IN DAY SURGERY ROOM FROM PACU. DENIES PAIN. SPINAL RESOLVING. ABLE TO MOVE BILATERAL FEET AND TOES. STATES BOTTOM STILL FEELS NUMB. VS CHECKED. IV SITE WNL. SCDs ON. AND SON AT BEDSIDE. CALL LIGHT WITHIN REACH.
--- NOTE | 2025-01-13 15:50 | NUR ---
1445: PATIENT ASSISTED OOB WITH 2 RNs STANDY BY ASSIST. SPINAL RESOLVED. PATIENT WALKED TO RESTROOM WITH STAND BY ASSIST. GAIT STEADY. VOID APPROXIMATELY 300 ML. GAIT STEADY BACK TO ROOM. IV DC'D WNL. TIP INTACT. DRESSING APPLIED. PATIENT GETTING DRESSED. IN ROOM WITH PATIENT. 1510: DISCHARGE INSTRUCTIONS GIVEN TO PATIENT AND . 1515: PATIENT DISCHARGED TO HOME WITH VIA WHEELCHAIR.
[2025-01-14] MEDS ORDERED: LACTATED RINGER'S 1,000 ML IV SCH (05:00)
[2025-01-14] MEDS ORDERED: IBLOOD GLUCOSE TEST STRIP 1 EA TEST VI PRN (07:00)
[2025-01-14] MEDS ORDERED: LIDOCAINE HCL 1% 5 ML SDV INJ ONE (07:00)
[2025-01-14] MEDS ORDERED: metroNIDAZOLE/SODIUM CHLORIDE 500 MG/100 ML PIGGYBACK IV SCH (07:00)
[2025-01-14] MEDS ORDERED: CEFAZOLIN SODIUM 2 GM/20 ML SYR IV SCH (07:00)
--- NOTE | 2025-01-14 15:25 | PATH ---
[facility] [address] [place], [place] [address] Signed SPECIMEN(S): A RECTAL BIOPSY SPECIMEN SOURCE: A. RECTAL BIOPSY CLINICAL HISTORY: Perirectal abscess, rule out inflammatory bowel FINAL PATHOLOGIC DIAGNOSIS: Rectum, biopsy: - Colonic mucosa with mild chronic inactive colitis BRP MICROSCOPIC EXAMINATION: Histologic sections of all submitted blocks are examined by light microscopy. These findings, together with the gross examination, support the pathologic diagnosis. GROSS DESCRIPTION: The specimen, labeled and designated "Daniela, rectal biopsy," is received in formalin and consists of one tellez soft tissue fragment, 0.7 cm. Entirely submitted in (A1). VB (under the direct supervision of a pathologist) The Gross Description was prepared using a voice recognition system. The report was reviewed for accuracy; however, sound-alike word errors, addition and/or deletions may occur. If there is any question about this report, please contact Client Services. ADDITIONAL NOTES: Immunohistochemical and/or in situ hybridization studies if performed in this case included appropriate positive controls that reacted as expected. This test was developed and its performance characteristics determined by [facility]. It has not been cleared or approved by the U.S. Food and Drug Administration. The FDA has determined that such clearance or approval is not necessary. This test is used for clinical purposes. It should not be regarded as investigational or for research. [facility] is certified under the Clinical Laboratory Improvement Amendments of 1988 (CLIA) as qualified to perform high complexity clinical laboratory testing. PATIENT NAME: RODGER GARCIATANI PATHOLOGY DATE OF : [birth year] REPORT #: [id number] PHYSICIAN: SAMMY SCOTT PCP: HARRIETT CIFUENTES PA-C REPORT IS CONFIDENTIAL AND NOT TO BE RELEASED WITHOUT AUTHORIZATION [facility] [address] [facility] [place] [address] Signed PERFORMING LABORATORY: Technical component was performed by [facility], [address] [place] [address] (CLIA# [id number]). Professional interpretation was performed by [facility], [address] [place] [address] (CLIA#:[id number]). Diagnostician: Arpan Aldana MD Pathologist Electronically Signed 01/14/2025 Copies: ~ PATIENT NAME: RODGER GARCIA PATHOLOGY DATE OF : [birth year] REPORT #: [id number] PHYSICIAN: SAMMY SCOTT PCP: HARRIETT CIFUENTES PA-C REPORT IS CONFIDENTIAL AND NOT TO BE RELEASED WITHOUT AUTHORIZATION
--- NOTE | 2025-01-14 19:47 | OR ---
[facility] [address] [place], [place] [address] Signed DATE OF OPERATION: 01/13/2025 SURGEON: Jose Galan MD PREOPERATIVE DIAGNOSES: 1. New left posterior lateral perirectal abscess. 2. History of right complex perirectal abscess, status post drainage and seton placement on December 18, 2024 (resolved). POSTOPERATIVE DIAGNOSES: 1. New left posterior lateral perirectal abscess. 2. History of right complex perirectal abscess, status post drainage and seton placement on December 18, 2024 (resolved). PROCEDURES: 1. Exam under anesthesia. 2. Incision and drainage of left posterior lateral perirectal abscess with cultures. 3. Placement of yellow vessel loop seton on the left posterior lateral aspect. 4. Rectal mucosal biopsy. ANESTHESIA: Spinal and IV sedation; Jose Goldstein CRNA and local 9 mL of 0.25% Marcaine with epinephrine. INDICATION: This 34-year-old white woman is a patient of SORIN Horvath. On December 18, she underwent incision and drainage of complex perirectal abscess which had extended not only to the perirectal space, but into the gluteus as well. Two separate draining vessel loops were placed and that problem has resolved entirely with no evidence of fistula formation. Those drains are out. Yesterday I saw on an urgent walk-in basis in the office for complaints of perianal pain on the left side. Examination showed findings consistent with perirectal abscess. The right-sided areas of previous drainage appeared normal. The patient has never had perirectal abscess problems in the past. Otherwise; she has no family history of inflammatory bowel disease or other issues. Given that she had just eaten late yesterday, I recommended incision and drainage today under anesthesia. Examination showed the area to be pointing and markedly tender. The risk of perirectal abscess drainage was reviewed with including, but not limited to bleeding, infection, and recurrence. Additionally, the rectal mucosal biopsy was recommended so as to assure Electronically Signed By: JOSE GALAN MD 01/14/25 194 PATIENT NAME: RODGER GARCIA OPERATIVE REPORT DATE OF : [birth year] REPORT #: [id number] PHYSICIAN: JOSE GALAN MD PCP: KAREN MOFFETT PA-C REPORT IS CONFIDENTIAL AND NOT TO BE RELEASED WITHOUT AUTHORIZATION [facility] [address] [place] [address] Signed that there was no inflammatory bowel disease given her relatively significant second perirectal abscess in the past month or so. FINDINGS: Rectal mucosa appeared normal. A sizable specimen was obtained for pathologic examination. The abscess itself was pointing and may have had some drainage since yesterday. The drainage tract was to the midline nearly and a yellow vessel loop was used to identify the trach and remaining of the seton. Cultures and Gram stain were obtained of the purulent material within the tract. The amount of purulence was not high, certainly not as high as under previous drainage, but the lesion was identified early which accounts for her current findings. DESCRIPTION OF PROCEDURE: The patient was brought to the operating room, given a saddle block anesthetic and placed in a prone oz-knife position. She was given Ancef and Flagyl antibiotics preoperatively. In the prone position the buttocks were taped apart and the perineum and perirectal area was prepared with a Betadine based solution. Examination on the right side was first undertaken showing no sign of turbepg-vz-tsg formation from the previously drained areas. Examination on the left side showed the rectal mucosa to be normal based on good exposure using the rectal retractors. The area of pointing was at about the 11 o'clock position in relation to the anal rectum. This area was incised in a radial fashion using a 15 blade and a small amount of purulence was noted. The tract was gently probed with a hemostat down to the pectinate line and a yellow vessel loop passed through the tract. Yellow vessel loop was knotted without excessive tension. Plan for elevation of the passageway for the abscess. Gram stain and cultures were obtained and the tract was copiously irrigated with sterile saline solution. Once hemostasis was assured there and a rectal retractor was used to provide exposure to the posterior wall of the rectum. A portion of rectal mucosa was elevated and excised with scissors. Bleeding from the site was controlled with a running 2-0 chromic suture. The specimen was passed for pathology. Irrigation further in the area of previous incision and drainage showed it to be hemostatic. 9 mL of 0.25% Marcaine was injected locally and peripad applied. The patient was ultimately placed in the supine position, extubated, and transported to the recovery room in good condition having suffered no complication. Sponge, needle, and instrument counts reported as correct x3. Jose Galan MD Electronically Signed By: JOSE GALAN MD 01/14/25 194 PATIENT NAME: RODGER GARCIA OPERATIVE REPORT DATE OF : [birth year] REPORT #: [id number] PHYSICIAN: JOSE GALAN MD PCP: KAREN MOFFETT PA-C REPORT IS CONFIDENTIAL AND NOT TO BE RELEASED WITHOUT AUTHORIZATION [facility] [address] [place] [address] Signed /MODL /[id number] cc: Karen Moffett PA-C Copies: KAREN MOFFETT PA-C ~ Electronically Signed By: JOSE GALAN MD 01/14/25 1947 PATIENT NAME: RODGER GARCIA OPERATIVE REPORT DATE OF : [birth year] REPORT #: [id number] PHYSICIAN: JOSE GALAN MD PCP: KAREN MOFFETT PA-C REPORT IS CONFIDENTIAL AND NOT TO BE RELEASED WITHOUT AUTHORIZATION
== END 2025-01-13 15:15 | disposition home or self-care (01) ==
LOC: OPS 10:02 → DS 10:02 → EDSTATUS 14:45 → OPS 14:45
PROVIDERS: ATTEND Surgery
PROC: 0DBP0ZZ Excision of Rectum, Open Approach (ICD-10-PCS; principal; 2025-01-13 11:35)
DX: K61.1 Rectal abscess (principal); K52.9 Noninfective gastroenteritis and colitis, unspecified
CPT/HCPCS: 00902; 87070; 87075; 87076; 87186; 87205; J0690; J1100; J1885; J2003; J2250; J2405; J2704; J2765; J3010; J7121

== ENCOUNTER 2025-04-21 09:52 | Day surgery (SDC) | payer OTHER ==
[~2025-04-21] VITALS: Ht 162.6 cm; Wt 81.2 kg
[~2025-04-21 09:52] MED LIST changes: -CEFAZOLIN SODIUM 2 GM/20 ML SYR IV SCH; +MIDAZOLAM HCL 5 MG/5 ML VIAL IV PRN; +OXYCODON-ACETA1 EAC2 PO; +VITAMIN D350 MC3 PO; +fentaNYL citrate 100 MCG/2 ML VIAL IV PRN; -metroNIDAZOLE/SODIUM CHLORIDE 500 MG/100 ML PIGGYBACK IV SCH
[2025-04-21] MEDS ORDERED: CHOLESTYRAMINE378 GM PO (10:13)
[2025-04-21 10:19] VITALS: BP 113/70
[2025-04-21] MEDS ORDERED: fentaNYL citrate 100 MCG/2 ML VIAL ONE ×2 (10:30→11:11)
[2025-04-21] MEDS ORDERED: MIDAZOLAM HCL 5 MG/5 ML VIAL ONE ×2 (10:30→11:12)
--- NOTE | 2025-04-21 11:31 | NUR ---
04/21/25 1131 Christ,Irina 1126 PT ARRIVED TO PACU ON 2L VIA NC, PT WAKES AND IS REORIENTED TO PACU AND EASILY FALLS BACK TO SLEEP. RESP EVEN AND UNLABORED.
[2025-04-21 12:31] VITALS: BP 102/70
--- NOTE | 2025-04-22 09:33 | OR ---
[facility] [address] [place], [place] [address] Signed DATE OF OPERATION: 04/21/2025 SURGEON: Jose Galan MD PREOPERATIVE DIAGNOSES: 1. History of bilateral complex perirectal abscess, status post drainage. 2. Equivocal biopsy of rectum or inflammatory changes. POSTOPERATIVE DIAGNOSES: 1. Normal-appearing colon and rectum. No evidence clinically of inflammatory bowel disease. 2. Small polyp of rectum (excised). PROCEDURE: Total colonoscopy to cecum with biopsy of cecum, rectum, and cold morcellation polypectomy of rectal polyp. ANESTHESIA: Intravenous sedation fentanyl 200 mcg, Versed 11 mg. INDICATION: This 35-year-old white woman is a patient of Karen Moffett PA-C. She underwent drainage of complex bilateral perirectal abscess by me on January 13, 2025. Setons were required and she has recovered fully from this problem. A biopsy of the rectum had been taken at time of operation, which was notable for "mild chronic inactive colitis." Though she has no diarrhea, bleeding, or sign of persistent or recurrent perirectal abscess or fistula in ANO, I have recommended colonoscopy to assure she does not have underlying inflammatory bowel disease. The risk of bleeding, infection, and perforation related to colonoscopy was reviewed with her, she understands and wished to proceed. FINDINGS: The prep was excellent. Complete colonoscopy was undertaken of the cecum. The ileum could not be intubated. It was poorly visualized. There was no sign of inflammatory bowel disease generally speaking, but biopsies were taken of the cecum and rectum. There was a rectosigmoid polyp, which was probably hyperplastic, which was excised. Retroflexed view showed no evidence of fistula in ANO and there was no evidence of it in the perianal area of recurrent disease. DESCRIPTION OF PROCEDURE: The patient was brought to the endoscopy suite and placed in lateral decubitus position, Electronically Signed By: JOSE GALAN MD 04/22/25 0933 PATIENT NAME: RODGER GARCIA OPERATIVE REPORT DATE OF : [birth year] REPORT #: [id number] PHYSICIAN: JOSE GALNA MD PCP: KAREN MOFFETT PA-C REPORT IS CONFIDENTIAL AND NOT TO BE RELEASED WITHOUT AUTHORIZATION [facility] [address] [place], [place] [address] Signed given intravenous sedation to the point of slurred speech and nystagmus. Digital rectal examination was normal. An Olympus video colonoscope was passed in the rectum and manipulated throughout the colon noting a particularly good bowel prep. The scope was ultimately advanced to the hepatic flexure, where abdominal stabilization was used to additionally pass the scope ultimately to the right colon and with visualization of the cecum. Various manipulations did not allow for full intubation of the cecum, though biopsy forcep was used to elevate the mucosa behind the ileocecal valve area and provide biopsy. It appeared normal. Scope was then withdrawn. Examination showed no sign of abnormality. The biopsy was obtained of the rectum. In the rectosigmoid was a small polyp, possibly hyperplastic, which was excised with cold morcellation technique. Retroflexed view showed no sign of recurrent or persistent fistula in ANO in any way or other abnormality. Scope was straightened, withdrawn and removed. The patient was taken to recovery room in good condition. CONCLUDING DIAGNOSIS: Probably hyperplastic polyp of rectum. No evidence of inflammatory bowel disease. PLAN: Would recommend repeat colonoscopy in 10 years based on her age, sooner if symptoms should develop. She will return to the ongoing care SORIN Horvath. MD TYLER Treviño/SANTAL /[id number] cc: Karen Moffett PA-C Copies: KAREN MOFFETT PA-C ~ Electronically Signed By: JOSE GALAN MD 04/22/25 0933 PATIENT NAME: RODGER GARCIA OPERATIVE REPORT DATE OF : [birth year] REPORT #: [id number] PHYSICIAN: JOSE GALAN MD PCP: KAREN MOFFETT PA-C REPORT IS CONFIDENTIAL AND NOT TO BE RELEASED WITHOUT AUTHORIZATION
--- NOTE | 2025-04-23 14:21 | PATH ---
[facility] [address] [facility] [address], [place] [address] Signed SPECIMEN(S): A CECUM COLON BIOPSY SPECIMEN(S): B SIGMOID/RECTUM POLYP SPECIMEN(S): C RECTUM SPECIMEN SOURCE: A. CECUM COLON BIOPSY B. SIGMOID/RECTUM POLYP C. RECTUM CLINICAL HISTORY: History of perirectal abscesses x 2. Post: Small polyp rectosigmoid. Rule out inflammatory bowel disease. FINAL PATHOLOGIC DIAGNOSIS: A. Cecum colon biopsy: - Benign colonic mucosa, negative for specific diagnostic abnormality. B. Sigmoid/rectum polyp: - Benign colonic mucosa with hyperplastic features (three fragments). C. Rectum, biopsy: - Benign colonic mucosa with an incidental mucosal lymphoid aggregate. - Negative for atypical epithelial features or pathologic inflammation. JVR:[facility] MICROSCOPIC EXAMINATION: Histologic sections of all submitted blocks are examined by light microscopy. These findings, together with the gross examination, support the pathologic diagnosis. GROSS DESCRIPTION: A. The specimen, labeled and designated "Hulce, cecum colon biopsy," is received in formalin and consists of two tellez soft tissue fragments, ranging from 0.4-0.5 cm. Entirely submitted in (A1). B. The specimen, labeled and designated "Hulce, sigmoid/rectum polyp," is received in formalin and consists of three tellez soft tissue fragments, ranging from 0.1-0.2 cm. Entirely submitted in (B1). C. The specimen, labeled and designated "Hulce, rectum biopsy," is received in formalin and consists of two tellez soft tissue fragments, ranging from 0.2-0.6 cm. Entirely submitted in (C1). VB (under the direct supervision of a pathologist) The Gross Description was prepared using a voice recognition system. The report was reviewed for accuracy; however, sound-alike word errors, addition and/or PATIENT NAME: RODGER GARCIA PATHOLOGY DATE OF : 88 REPORT #: [id number] PHYSICIAN: [facility] PCP: HARRIETT CIFUENTES PA-C REPORT IS CONFIDENTIAL AND NOT TO BE RELEASED WITHOUT AUTHORIZATION [facility] [address] [place] [address] [place], [place] [address] Signed deletions may occur. If there is any question about this report, please contact Client Services. PERFORMING LABORATORY: Technical component was performed by [facility], [address] [place] [id number] (CLIA# [id number]). Professional interpretation was performed by [facility] - [facility], [address] [place] [id number] (CLIA#: [id number]). Diagnostician: Elkin Burk MD Pathologist Electronically Signed 04/23/2025 Copies: ~ PATIENT NAME: RODGER GARCIA PATHOLOGY DATE OF : [birth year] REPORT #: [id number] PHYSICIAN: [facility] PCP: HARRIETT CIFUENTES PA-C REPORT IS CONFIDENTIAL AND NOT TO BE RELEASED WITHOUT AUTHORIZATION
== END 2025-04-21 12:39 | disposition home or self-care (01) ==
LOC: DS 09:52
PROVIDERS: ATTEND Surgery
PROC: 0DBP8ZX Excision of Rectum, Via Natural or Artificial Opening Endoscopic, Diagnostic (ICD-10-PCS; 2025-04-21)
PROC: 0DBH8ZX Excision of Cecum, Via Natural or Artificial Opening Endoscopic, Diagnostic (ICD-10-PCS; principal; 2025-04-21 11:00)
DX: K61.1 Rectal abscess (principal); K62.1 Rectal polyp; Z98.890 Other specified postprocedural states
CPT/HCPCS: 84703; 99153; G0500; J2250; J3010; J7121

== ENCOUNTER 2025-06-18 11:41 | Emergency (ER) | payer OTHER ==
[~2025-06-18] VITALS: Ht 162.6 cm; Wt 81.2 kg
[~2025-06-18 11:41] MED LIST changes: +CHOLESTYRAMINE378 GM PO; -IBLOOD GLUCOSE TEST STRIP 1 EA TEST VI PRN; -LACTATED RINGER'S 1,000 ML IV SCH; -LIDOCAINE HCL 1% 5 ML SDV INJ ONE; -MIDAZOLAM HCL 5 MG/5 ML VIAL IV PRN; -fentaNYL citrate 100 MCG/2 ML VIAL IV PRN
[2025-06-18] MEDS ORDERED: PHENTERMINE HCL30 MG PO (11:51)
[2025-06-18 12:45] LABS: BASOPHILS 0.5 % (0.1-1.2); EOSINOPHILS 1.7 % (0.7-5.8); LYMPHOCYTES 25.1 % (19.3-51.7); MCH 30.3 PG (25.6-32.2); MCHC 35.5 g/dL (32.2-35.5); MCV 85.4 fL (79.4-94.8); MONOCYTES 4.6 % (4.7-12.5); NEUTROPHILS 67.9 % (34.0-71.1); RBC 5.12 M/uL (3.93-5.22)
[2025-06-18] MEDS ORDERED: fentaNYL citrate 100 MCG/2 ML VIAL IV ONE (12:45)
[2025-06-18 12:59] LABS: ALT (SGPT) 16.0 U/L (14-59); AST (SGOT) 9.0 U/L (15-37); GLOMERULAR FILTRATION RATE,EST 116.0 mL/min (>60); PROTEIN, TOTAL 7.8 g/dL (6.4-8.2); UREA NITROGEN 8.0 mg/dL (7-18)
[2025-06-18] MEDS ORDERED: AMOX TR-K CLV1 EAC1 PO (13:30)
[2025-06-18] MEDS ORDERED: METRONIDAZOLE500 MG PO (13:30)
[2025-06-18] MEDS ORDERED: BACTRIM DS TAB1 EACH PO (13:33)
[2025-06-18] MEDS ORDERED: OXYCODONE/APAP 5/325 TAB PO ONE (14:45)
[2025-06-18 15:11] VITALS: BP 120/73
== END 2025-06-18 15:09 | disposition home or self-care (01) ==
LOC: ED 11:41
PROVIDERS: Emergency Medicine
DX: L02.416 Cutaneous abscess of left lower limb (principal); Z79.899 Other long term (current) drug therapy
CPT/HCPCS: 10060; 36415; 80053; 84703; 85025; 87070; 87075; 87077; 87186; 87205; 96374; 96375; 99283-25; J2405; J3010